=== PATIENT | male | born 1935 | race Caucasian/White ===

== ENCOUNTER 2018-05-04 03:48 | Inpatient (IN) ==
--- NOTE | 2018-05-04 04:13 | PROVIDER DOCUMENTATION ---
HPI-General Adult - General Chief Complaint: Altered Mental Status Stated Complaint: ams Time Seen by Provider: 05/04/18 03:55 Source: EMS Unable to obtain history due to:: altered Allergies/Adverse Reactions: Patient Allergies Allergy/AdvReac Type Severity Reaction Status Date / Time cephalexin Allergy Severe SHORTNESS Verified 04/19/18 13:48 OF BREATH Home Medications: Home Medication List Medication Instructions Recorded Confirmed Last Taken Type Aspirin [Aspir-Low] 81 mg PO QAM 03/31/17 05/04/18 03/21/18 History Fluticasone 50 Mcg Nasal [place] 2 sprays MAT BID 03/31/17 05/04/18 03/21/18 History [Flonase] PRAVAstatin [Pravachol] 40 mg PO QHS 03/31/17 05/04/18 03/21/18 History Pentoxifylline E.r. [Trental] 400 mg PO BID 03/31/17 05/04/18 03/21/18 History Phenytoin Sodium Extended 400 mg PO QHS 03/31/17 05/04/18 03/21/18 History Carvedilol [Coreg] 12.5 mg PO BID tablet 04/03/17 05/04/18 03/21/18 Rx Phenobarbital 97.2 mg PO QHS 60 Days #21 tab 04/19/17 05/04/18 03/21/18 Rx Gabapentin 300 mg PO TID 06/06/17 05/04/18 03/21/18 History [place]-3 Fatty Acids/Fish Oil [Fish 1 cap PO QAM 06/06/17 05/04/18 03/21/18 History Oil 1,000 mg Capsule] Omeprazole 20 mg PO QAM 06/06/17 05/04/18 03/21/18 History Acetaminophen [Mapap] 1,000 mg PO Q6H PRN PRN 08/18/17 05/04/18 03/21/18 History Furosemide [Lasix] 20 mg PO QAM 08/18/17 05/04/18 03/21/18 History Multivit,Th Iron,Other Min 1 each PO QAM 08/18/17 05/04/18 03/21/18 History [Therems-M] Calcium Carbonate/Vit D3 [Caltrate 1 tab PO DAILY 03/01/18 05/04/18 03/21/18 History 600 + D] Menthol/Zinc Oxide Ointment 1 gm TOP BID 03/01/18 05/04/18 03/21/18 History [Calmoseptine Ointment] Phenobarbital 2 tab PO TID 03/01/18 05/04/18 03/21/18 History Losartan [Cozaar] 50 mg PO DAILY #30 tab 03/05/18 05/04/18 03/21/18 Rx Prednisone 10 mg PO QAM #30 tab 03/05/18 05/04/18 03/21/18 Rx Ergocalciferol (Vitamin D2) 50,000 unit PO Q7D 05/04/18 05/04/18 Unknown History [Vitamin D] Multivits,Ca,Minerals/Iron/FA 1 tab PO QAM 05/04/18 05/04/18 Unknown History [Thera-M Tablet] Teriparatide [Forteo] 20 mcg SQ QAM 05/04/18 05/04/18 Unknown History - History of Present Illness -Gen Adult Nature of Presenting Problems: Pt presents with ams, pt has fever, cough, sob, coming from NH, non verbal here , low O2 sat when pt was picked up by EMS, pt is lying in bed in no acute respiratory distress Location of Pain/Injury: reports: none Pain Radiation: reports: no radiation Quality of Pain: reports: none Severity: reports: mild Onset/Duration: reports: 24 hours ago Timing: reports: still present Context/Activities at Onset: reports: none Modifying Factors: improves with: nothing Associated Symptoms: reports: denies symptoms Similar Symptoms Previously?: No Recently seen or treated by another doctor?: No Review of Systems - Adult - REVIEW OF SYSTEMS - ADULT Constitutional: reports: fever Eyes: reports: no symptoms reported Ears, Nose, Mouth & Throat: reports: no symptoms reported Cardiovascular: reports: no symptoms reported Respiratory: reports: see HPI Gastrointestinal: reports: no symptoms reported Genitourinary: reports: no symptoms reported Musculoskeletal: reports: no symptoms reported Integumentary: reports: no symptoms reported Neurological: reports: no symptoms reported Psychiatric: reports: no symptoms reported Endocrine: reports: no symptoms reported Hematologic/Lymphatic: reports: no symptoms reported Allergic/Immunologic: reports: no symptoms reported All Other Systems: Reviewed and Negative Past History - Adult - PAST MEDICAL HISTORY-ADULT Review of Records: reports: Old Records Reviewed, Nursing Assessment Review, Medications Reviewed, Social history reviewed & non-contributory. Major Childhood Illnesses: reports: denies history Cardiovascular: reports: HTN Respiratory: reports: lung disease (pulmonary fibrosis with hypoxemia) Gastrointestinal: reports: cancer (colon), GERD Obstetrical/Gynecological: reports: denies history Genitourinary: reports: kidney disease Musculoskeletal: reports: denies history Neurological: reports: CVA, stroke deficits (left sided weakness), Seizures/ Epilepsy Psychiatric: reports: denies history Endocrine/Immune: reports: Diabetes Other Conditions: reports: denies history - PRIOR SURGERIES/PROCEDURES Surgical/Procedure History: reports: appendectomy, tonsillectomy, bowel surgery (colon cancer), other (nephrectomy due to colon cancer) - IMMUNIZATION STATUS Childhood Immunizations: See Nurse Assessment Flu Vaccine: See Nurse Assessment - FAMILY HISTORY Family History: reviewed, not pertinent Physical Exam-General - PHYSICAL EXAM-ADULT Initial Vital Signs Reviewed: Yes - CONSTITUTIONAL General Appearance: lethargic - EYES Eyes: PERRL/EOMI - HEAD, EARS, NOSE, MOUTH & THROAT HENMT: normocephalic/atraumatic - NECK Neck: normal inspection - RESPIRATORY Respiratory: crackles - CARDIOVASCULAR Cardiovascular: regular rate, rhythm - GASTROINTESTINAL (ABDOMEN) Abdominal Exam: normal bowel sounds - LYMPHATIC Lymphatic: no adenopathy - MUSCULOSKELETAL Back Exam: normal inspection Extremity: normal inspection - SKIN Integumentary: normal color - NEUROLOGIC Neurologic: release of information clerk II-XII nml as tested - PSYCHIATRIC Psych/Mental Status: normal mood/affect Progress - PLAN OF CARE/RESULTS Progress/Plan/Lab Results: Vital Signs - 8 hr 05/04/18 04:04 Temperature 102.8 F H Pulse Rate 100 H Respiratory Rate 24 Blood Pressure 165/71 O2 Sat by Pulse Oximetry 92 L Orders Category Date Time Status [place] Cath Insertion ORDERED Care 05/04/18 03:57 Active cxr [CHEST-1 VIEW] [RAD] Stat Exams 05/04/18 03:56 Ordered BLOOD CULTURE [BLDCUL] Stat Lab 05/04/18 03:56 Uncollected CBC WITH ELECTRONIC DIFF [HEME] Stat Lab 05/04/18 03:56 Uncollected COMPREHENSIVE METABOLIC PANEL [CHEM] Stat Lab 05/04/18 03:56 Uncollected LACTATE, PLASMA [CHEM] Stat Lab 05/04/18 03:56 Uncollected LIPASE [CHEM] Stat Lab 05/04/18 03:56 Uncollected PRO B-NATRIURETIC PEPTIDE Stat Lab 05/04/18 03:56 Uncollected TROPONIN T Stat Lab 05/04/18 03:56 Uncollected URINALYSIS [URINALYSIS] Stat Lab 05/04/18 03:56 Uncollected URINE CULTURE [RM] Stat Lab 05/04/18 03:56 Uncollected Result Diagrams: 05/04/18 04:27 05/04/18 04:27 Departure - Departure Date of Disposition Decision: 05/04/18 Time of Disposition Decision: 05:40 DIAGNOSIS: Pneumonia Qualifiers: Pneumonia type: due to unspecified organism Laterality: bilateral Lung location : unspecified part of lung Qualified Code(s): J18.9 - Pneumonia, unspecified organism Disposition: ADMITTED INPATIENT 09 Certified Medical Emergency: Emergent Condition: Stable - Critical Care Note This patient required my direct & personal management of CC.: No Attestation - Physician/ HARINDER Attestation Patient care was provided by Advanced Practice Provider:: No The physician spent face to face time with patient:: Yes Advanced Practice Provider documentation review:: Supervising physician onsite and consulted in the evaluation and care of this patient. The physician did have a face to face encounter with the patient.
[2018-05-04 04:50] LABS: BASO# 0.01 X1000 (0.0-0.2); BASO% 0.1 % (0.0-0.8); EOS# 0.09 X1000 (0.0-0.7); EOS% 0.7 % (0.0-10.0); HEMATOCRIT 40.9 % (42.0-52.0); HEMOGLOBIN 13.4 g/dL (14.0-18.0); LYMPH# 0.57 X1000 (1.2-3.4); LYMPH% 4.7 % (20.5-51.1); MCH 31.5 PG (27-31); MCHC 32.8 g/dL (33-37); MCV 96.2 FL (81-99); MONO# 0.74 X1000 (0.11-0.59); MONO% 6.1 % (1.7-9.3); MPV 9.4 FL (7.4-10.4); NEUT# 10.73 X1000 (1.4-6.5); NEUT% 88.4 % (42.2-75.2); PLT 126 X1000 (130-400); RBC 4.25 XMIL (4.7-6.1); RDW 13.2 % (11.5-14.5); WBC 12.14 X1000 (4.8-10.8)
[2018-05-04 04:55] LABS: URINE SOURCE CATH
[2018-05-04 04:58] LABS: BILIRUBIN URINE NEGATIVE (NEGATIVE); BLOOD URINE NEGATIVE (NEGATIVE); COLOR YELLOW; GLUCOSE URINE NEGATIVE (NEGATIVE); KETONE URINE NEGATIVE (NEGATIVE); LEUKOCYTES URINE NEGATIVE (NEGATIVE); NITRITE URINE NEGATIVE (NEGATIVE); PROTEIN URINE 70 mg/dL (NEGATIVE); SP GRAVITY URINE 1.016; TURBIDITY URINE CLEAR (CLEAR); UROBILINOGEN URINE NORMAL (NORMAL)
[2018-05-04 04:59] LABS: UR EPITHELIAL CELLS <10 /HPF (<10); URINE BACTERIA NEGATIVE /HPF; URINE RBC <10 /HPF (<10); URINE WBC <10 /HPF (<10)
[2018-05-04 05:05] LABS: AGAP 12; ALB/GLOB RATIO 1.2; ALBUMIN 3.6 g/dL (3.5-5.0); ALKALINE PHOSPHATASE 146 U/L (32-122); BUN 19 mg/dL (8-22); CALCIUM 8.1 mg/dL (8.8-10.2); CHLORIDE 98 mmol/L (98-107); COSMO 290; ESTIMATED GFR > 60; GLUCOSE 175 mg/dL (70-104); GOT 25 U/L (10-34); GPT 27 U/L (10-44); LIPASE 63 U/L (13-60); POTASSIUM 4.3 mmol/L (3.5-5.1); SODIUM 142 mmol/L (136-145); TCO2 32 mmol/L (25-35); TOTAL BILIRUBIN 0.49 mg/dL (0.20-1.00); TOTAL PROTEIN 6.7 g/dL (6.3-8.3)
[2018-05-04] MEDS ORDERED: TYLENOL PR ONE (05:13)
[2018-05-04] MEDS ORDERED: VANCOMYCIN 1 GM/NS 1 GM/250 ML IVPB IV ONE ×2 (05:23→08:00)
[2018-05-04] MEDS ORDERED: ZOSYN 3.375 GM in NS 50 ML IV ONE (05:23)
[2018-05-04] MEDS ORDERED: ZOFRAN IV PRN (06:10)
[2018-05-04] MEDS: DUONEB (A & A) INH SCH ×4 (06:15→20:13)
[2018-05-04] MEDS ORDERED: NS 1,000 ML IV ONE (06:19)
[2018-05-04] MEDS ORDERED: TYLENOL PR PRN (06:21)
[2018-05-04] MEDS ORDERED: VANCOMYCIN IV PER PHARMACY MISC SCH (06:30)
[2018-05-04] MEDS ORDERED: LEVOPHED 8 MG in D5 1/2 NS 250 ML IV SCH (06:30)
[2018-05-04] MEDS ORDERED: NS 500 ML IV ONE (06:31)
[2018-05-04 06:41] LABS: ALLEN TEST YES; BE 9.7 mmoll (-3.0-3.0); BLOOD TYPE ARTERIAL; HCO3-(ACT) 32.4 mmoll (20.0-26.0); METHB 1.2 % (0.0-1.5); O2(CT) 16.7 mL/dL (15.0-23.0); O2HB 94.1 % (95.0-99.0); PO2(98.6) 74 mmHg (60-100); SAMPLE BLOOD; SAO2 97.4 % (95.0-100.0); THB 12.6 g/dL (11.5-17.4); pH(98.6) 7.43 (7.35-7.45)
[2018-05-04 06:42] LABS: MODALITY CANNULA
[2018-05-04] MEDS: LOVENOX SUBQ SCH (06:42)
[2018-05-04 06:43] LABS: PCO2(98.6) 54 mmHg (35-45)
--- NOTE | 2018-05-04 06:43 | HISTORY AND PHYSICAL ---
ADDENDUM: The patient was seen and examined by myself. Full note dictated and discussed with the nurse practitioner. Patient presented to the hospital from the [facility] confused and disoriented. He had some fever and increased cough. There is no other history available as the patient is confused and his sister is unaware Does have a history of pulmonary fibrosis, diabetes. No change in his chest x-ray consistent with pneumonia. While in the ER, his blood pressure has dropped into the upper 80s, low 90s systolic. We will admit him to the hospital, place him on antibiotics, IV fluids, control his blood sugar. We will use Levophed if his blood pressure continues to drop. Further orders as needed. Please see full dictation. cc: Scooby Banks MD MTDD
[2018-05-04] MEDS: HUMALOG SUBQ SCH ×4 (07:00→20:51)
[2018-05-04] MEDS: NS 1,000 ML IV SCH ×3 (07:13→19:59)
--- NOTE | 2018-05-04 07:20 | HISTORY AND PHYSICAL ---
PRIMARY CARE PROVIDER: Dr. Osmar Vasquez. CHIEF COMPLAINT: Altered mental status. HISTORY OF PRESENT ILLNESS: This is an 82-year-old male who [facility] the [facility]. He is obtunded. He does reflex to deep stimulus. He was nonverbal in the emergency room. 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 He did regain mostly normal activity. I believe he had a slight limp and his left side was weak, greater in the arm, I believe from the elbow down he only had trace movements. He also had diabetes mellitus type 2, previous renal cell carcinoma, pulmonary fibrosis, I believe he uses 2-3 L of home O2, osteoporosis and post stroke epilepsy. Again, he came in fairly obtunded. The sister tells me that at the [facility] from what she understands, he had had some cough and was not feeling very well for around 3 days. He was somewhat more lethargic than normal. Reportedly today, he started having low O2 sats. Stated that he was having chills, became altered. From what I understand, they were unable to take the patient's temperature for some reason at the [facility]; however, on arrival, he was febrile with a temp max of 102.8 degrees in the emergency room. Flu swab is pending. Chest x-ray obtained in the emergency room shows questionable left lower lobe infiltrate. Does have a mildly elevated white blood cell count at 12.14. Also, he is hypotensive in the emergency room. His blood pressure has dropped down into the 80s systolic. The patient will be admitted inpatient to the ICU for further evaluation and treatment. PAST MEDICAL HISTORY: See HPI. PREVIOUS SURGICAL HISTORY: 1. Hip repair. 2. Appendectomy. 3. Tonsillectomy. 4. Bowel resection secondary to colon cancer. 5. Nephrectomy. SOCIAL HISTORY: [facility] the [facility]. Remote history of tobacco use per the sister. He was in 2011. He has no children. No alcohol. No illicit drugs. FAMILY HISTORY: Father had diabetes and coronary artery disease. Mother had arthritis. ALLERGIES: Cephalexin causing shortness of breath. HOME MEDICATIONS: A list of home medications is being compiled by nursing. These can be restarted when appropriate. REVIEW OF SYSTEMS: A review of systems could not be obtained from the patient as he obtunded and nonverbal. Pertinent positives on admission are listed above in the HPI. PHYSICAL EXAMINATION: VITAL SIGNS: Temp 102.8 degrees, pulse 89, respirations 23, blood pressure 89/50. Oxygen saturation 93% on 2 L nasal cannula. GENERAL: 82-year-old male lying in the ER stretcher. Chronically ill-appearing. He is obtunded. Reflexes from deep stimulus. He is nonverbal at this time. HEENT: Head is atraumatic, normocephalic. Pupils equal, round, reactive to light. Extraocular eye movement could not be tested. Oral mucosa is moist. Oropharynx otherwise normal on examination. NECK: Supple. No JVD. Trachea is midline. No carotid bruit. CARDIAC: S1, S2 appreciated. No murmurs, gallops, rubs. LUNGS: Fine crackles noted throughout bilateral air trevino. No wheezing, rhonchi. Symmetrical rise and fall of respirations. ABDOMEN: Protuberant, soft, nondistended, nontender. Bowel sounds present in all 4 quadrants. Normoactive. No pulsatile mass. No organomegaly. MUSCULOSKELETAL: The patient is for the most part flaccid. Does reflect to deep stimulus. Has only moved right arm that I saw. EXTREMITIES: No cyanosis, clubbing or edema. 1+ pedal pulses bilaterally. SKIN: Warm, dry and intact. No acute lesions or rash. DIAGNOSTIC DATA: Chest x-ray shows chronic fibrotic changes, questionable left lower lobe infiltrate. LABORATORY DATA: WBC 12.14, hemoglobin 13.4, hematocrit 40.9, platelet count 126,000. Sodium 142, potassium 4.3, chloride 98, carbon dioxide 32, BUN 19, creatinine 1, glucose 175. Urine unremarkable. ASSESSMENT AND PLAN: 1. Encephalopathy. This is likely infectious in nature. The patient has a presumed left lower lobe pneumonia. He is a [facility] patient. We will start on vancomycin and Zosyn. He received 1 dose of Zosyn already in the emergency room. We will order blood cultures. Cannot exclude flu at this point. Flu swab has been ordered and is pending. 2. Presumed left lower lobe pneumonia. The patient will be treated with IV antibiotics, DuoNeb, IV normal saline. 3. Hypotension. The patient has a history of essential hypertension. Home medications are being reconciled. He will be started on Levophed and placed in the unit at this time. He is currently receiving a fluid bolus in the emergency room. 4. Seizure disorder. I believe the patient takes Dilantin and phenobarbital. We will defer to primary care provider, Dr. Osmar Vasquez to restart these once dosages are placed in the computer. 5. History of CVA, aware. CT of the head is pending to rule out acute CVA; however, this appears to be more infectious in nature. 6. Diabetes mellitus type 2. Patient's blood sugars are mildly elevated at 175. He is obtunded and will not be able to take oral antihyperglycemics at this time. We will start on low dose sliding scale insulin with pattern fingerstick blood sugar. Further recommendations per patient's clinical course. Dictated by SHANIQUA Guan for Scooby Banks MD cc: SHANIQUA Guan MD Russell T. Barr, MD
--- NOTE | 2018-05-04 07:52 | Diag Imaging Result Doc PS360 ---
EXAM: CT HEAD W/O CONTRAST INDICATION: ams TECHNIQUE: This exam was performed using automated exposure control, adjustment of mA or kV according to patient size, and/or use of iterative reconstruction technique. COMPARISON: 02/15/2018 FINDINGS: There is stable right frontal lobe encephalomalacia. There is suggestion of moderate white matter microangiopathy, stable. There is a stable chronic lacunar infarct involving the caudate head on the left. There is no definite acute infarct given the limited sensitivity of CT versus MRI. There is no discrete intracranial mass, mass effect, or intracranial hemorrhage. There is stable chronic right maxillary sinus mucosal disease with complete opacification. There is minimal stable right ethmoid sinus mucosal disease. Surrounding soft tissues and bony structures are essentially unremarkable, otherwise. IMPRESSION: Stable chronic changes as described. No evidence of acute intracranial pathology. Electronically signed by Abdi Lawrence 05/04/2018 7:50 AM
--- NOTE | 2018-05-04 08:37 | Diag Imaging Result Doc PS360 ---
EXAM: CHEST-1 VIEW INDICATION: sob, cough TECHNIQUE: One view COMPARISON: 04/19/2018 FINDINGS: Lung volumes are low similar to the previous study. There are bilateral interstitial and airspace infiltrates throughout both lungs. The density has increased during the interval. This suggests edema and/or pneumonia superimposed on fibrosis. No definite pleural fluid collection or pneumothorax is identified. Cardiac silhouette is stable. IMPRESSION: Increasing opacity throughout both lungs suggesting infiltrate superimposed on fibrosis. Electronically signed by Abdi Lawrence 05/04/2018 8:35 AM
[2018-05-04] MEDS: ZOSYN 3.375 GM in NS 50 ML IV SCH ×3 (11:29→23:54)
[2018-05-04] MEDS ORDERED: MISC. PHARMACY COMMUNICATION SCH (13:30)
[2018-05-04] MEDS ORDERED: FLU VACCINE IM ONE (14:01)
--- NOTE | 2018-05-04 15:11 | PROGRESS NOTE ---
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 Per report, he was lethargic and obtunded. Temperature in the emergency department was noted to be 102.8. White blood cell count was noted to be elevated at 12.4. Chest x-ray suggested increasing opacity throughout both lungs suggesting infiltrate superimposed on fibrosis. The patient was admitted to the ICU. He was placed on Zosyn, vancomycin, and nebulizer treatment. Oxygen per protocol was initiated. Upon my arrival in the emergency department, patient was comfortable. He was lethargic, but answered questions appropriately. His vital signs have been stable since in the emergency department. He is currently afebrile. OBJECTIVE: Temperature 97.9 degrees, heart rate 68, respirations 17, blood pressure 92/42.General: Chronically ill appearing, no acute distress. Cardiovascular: Regular rate and rhythm. No significant murmurs, rubs, or gallops. Pulmonary: Crackles at bilateral bases with occasional rhonchi. Abdomen: Soft, nontender, nondistended. Positive bowel sounds. Extremities: Moves all extremities well. No significant clubbing, cyanosis, or edema. Dermatologic: Evaluation reveals no evidence of rash. ASSESSMENT AND PLAN: 1. half-way-associated pneumonia-blood cultures have been drawn. Differential includes community-acquired pathogens, senior care pathogens, and aspiration. The patient will be continued on Zosyn and vancomycin therapy. Clinically, patient has demonstrated stability. 2. Hypoxemia-we will continue patient on oxygen per protocol. We will encourage aspiration precautions. 3. Alteration of mental status/metabolic encephalopathy-this likely is a consequence of his acute infection. I am unaware of patient's underlying baseline. We will attempt to achieve better understanding from family members. 4. Profound weakness-we will treat patient for his underlying pneumonia. We will initiate physical therapy once able. 5. Type 2 diabetes-blood sugar was elevated upon admission at 175. We will follow serial blood sugar evaluations. 6. Hypotension-patient was noted to have a modest hypotension while in the emergency department. Blood pressure this afternoon remains marginal. We will continue IV fluids. At this point, I do not see an indication for pressor support. This likely is a consequence of his acute infection. 7. History of cerebrovascular accident-we will remain aware. 8. Disposition-at this point, patient continues to require halfway care in a hospital setting. We will plan discharge home or to rehabilitation once appropriate. cc: MD Osmar Wall MD
[2018-05-04] MEDS ORDERED: BLISTEX MEDICATED BERRY LIP BALM TOP ONE (18:04)
[2018-05-05] MEDS: DUONEB (A & A) INH SCH ×5 (03:26→23:42)
[2018-05-05 05:02] LABS: BASO# 0.01 X1000 (0.0-0.2); BASO% 0.2 % (0.0-0.8); EOS# 0.17 X1000 (0.0-0.7); EOS% 2.8 % (0.0-10.0); HEMATOCRIT 34.8 % (42.0-52.0); HEMOGLOBIN 11.1 g/dL (14.0-18.0); LYMPH# 0.67 X1000 (1.2-3.4); MCHC 31.9 g/dL (33-37); MCV 97.2 FL (81-99); MONO# 0.43 X1000 (0.11-0.59); NEUT# 4.82 X1000 (1.4-6.5); PLT 121 X1000 (130-400); RBC 3.58 XMIL (4.7-6.1); RDW 13.1 % (11.5-14.5)
[2018-05-05 05:22] LABS: AGAP 9; BUN 16 mg/dL (8-22); CALCIUM 7.9 mg/dL (8.8-10.2); CHLORIDE 105 mmol/L (98-107); COSMO 287; CREATININE 0.9 mg/dL (0.7-1.2); ESTIMATED GFR > 60; GLUCOSE 111 mg/dL (70-104); POTASSIUM 4.1 mmol/L (3.5-5.1); SODIUM 143 mmol/L (136-145); TCO2 29 mmol/L (25-35)
[2018-05-05] MEDS: LOVENOX SUBQ SCH (05:46)
[2018-05-05] MEDS: ZOSYN 3.375 GM in NS 50 ML IV SCH ×3 (05:46→18:07)
[2018-05-05] MEDS: HUMALOG SUBQ SCH ×4 (06:18→20:38)
[2018-05-05] MEDS: NS 1,000 ML IV SCH (09:55)
[2018-05-05] MEDS ORDERED: NS 50 ML ONE (10:21)
[2018-05-05] MEDS ORDERED: TYLENOL PO PRN (12:43)
[2018-05-05] MEDS ORDERED: NS 1,000 ML IV SCH (12:52)
--- NOTE | 2018-05-05 13:23 | PROGRESS NOTE ---
DATE: 05/05/2018 SUBJECTIVE: Patient was admitted yesterday morning with alteration of mental status. Full evaluation revealed an underlying pneumonia. The patient was placed in the ICU. He was started on Zosyn, vancomycin, and aggressive hydration. Upon my evaluation yesterday morning, patient was interactive, but minimally. Over the course of the day yesterday, patient's overall condition improved considerably. The patient's blood pressure improved with IV hydration and treatment of his underlying infection. Blood cultures thus far are negative. This morning, patient is much more interactive. His mental status is at his baseline. He is alert and oriented to person, place, and situation. He is asking for food as he is very hungry. His only complaint this morning is that of a cough, as well as some mild shortness of breath. He has had some cough productive of a purulent sputum. He denies current fevers, chills, nausea/vomiting, or chest discomfort. OBJECTIVE: Vital signs: T-max 98.2 degrees, heart rate 62-75, respirations 17-23, blood pressure 77 to 160 over 41 to 80. General: No acute distress. Cardiovascular: Regular rate and rhythm. No significant murmurs, rubs, or gallops. Pulmonary: Clear to auscultation anteriorly. Adequate air movement. Abdomen: Soft, nontender, nondistended. Positive bowel sounds. Extremities: No significant clubbing, cyanosis, or edema. Dermatologic: Evaluation reveals no evidence of rash. LABORATORY DATA: White blood cell count 6.10, hemoglobin 11.1, hematocrit 34.8, platelet count is 121,000. Sodium 143, potassium 4.1, chloride 105, bicarbonate 29, BUN 16, creatinine 0.9, glucose 111, calcium 7.9. TSH 1.52. ASSESSMENT AND PLAN: 1. care home associated pneumonia - As described above, patient has experienced a significant improvement in his overall condition over the course of the first 24 hours. The patient's blood pressure has increased from a hypotensive state to a slight elevation. The patient's temperature has normalized. His white blood cell count has also normalized. Blood cultures thus far are negative. We will encourage staff to obtain a sputum culture. We will continue Zosyn and vancomycin for now. In the setting of mild shortness of breath this morning, we will increase his DuoNeb to every 4 hours, discontinue IV fluids, and resume Lasix therapy. We will check a chest x-ray. 2. Hypoxemia - We will continue patient on oxygen per protocol. We will encourage aspiration precautions as well as incentive spirometry. 3. Alteration of mental status/metabolic encephalopathy - I am very encouraged with the patient's improvement over the course of the first 24 hours. This likely was a consequence of his underlying pneumonia. We will continue treatment as above. 4. Profound weakness - Once again, this is likely a consequence of his underlying pneumonia. We will continue aggressive management as noted above. We will consider whether physical therapy is appropriate to initiate tomorrow. 5. Type 2 diabetes - The patient is being treated with sliding scale insulin. We will continue this. 6. Hypotension - Upon admission, patient was noted to be hypotensive, likely secondary to his underlying infection. With his aggressive management as described above, his blood pressures have increased considerably. We will resume Coreg therapy today. We will schedule losartan to be initiated tomorrow, as I suspect his blood pressure will tolerate this at that time. 7. History of cerebral vascular accident with underlying seizure disorder - I have reviewed patient's home medication list. We will resume phenobarbital and Dilantin at his home dosage. DISPOSITION: At this point, patient continues to require group home care in a hospital setting. We will monitor patient's pulmonary status over the course of the next several hours. If he remains stable, we will consider transfer to the floor later this evening. cc: MD Osmar Wall MD
[2018-05-05] MEDS: MUCINEX PO SCH ×2 (13:33→20:31)
[2018-05-05] MEDS: PREDNISONE PO SCH (13:33)
[2018-05-05] MEDS: COREG PO SCH ×2 (13:38→20:32)
[2018-05-05] MEDS: NEURONTIN PO SCH ×2 (13:48→18:00)
[2018-05-05] MEDS: LASIX PO SCH (13:48)
[2018-05-05] MEDS ORDERED: VANCOMYCIN 1,800 MG in NS 250 ML IV SCH (14:00)
--- NOTE | 2018-05-05 14:40 | Diag Imaging Result Doc PS360 ---
EXAM: CHEST-PORTABLE INDICATION: Pneumonia TECHNIQUE: One view COMPARISON: 05/04/2018 FINDINGS: Inspiration is suboptimal. This is similar to the previous study. Interstitial opacity appears to have improved slightly during the interval. This suggests improving edema superimposed on fibrosis. No other new consolidation is identified. Cardiac silhouette is stable. IMPRESSION: Slight improvement of infiltrates bilaterally. Electronically signed by Abdi Lawrence 05/05/2018 2:38 PM
[2018-05-05] MEDS: PHENOBARBITAL PO SCH ×2 (15:09→20:51)
[2018-05-05] MEDS: PRAVACHOL PO SCH (20:31)
[2018-05-05] MEDS: DILANTIN PO SCH (20:31)
[2018-05-05] MEDS: TRENTAL PO SCH (20:32)
[2018-05-05] MEDS: FLONASE NAS SCH (20:51)
[2018-05-05] MEDS ORDERED: COREG PO SCH (21:00)
[2018-05-06] MEDS: ZOSYN 3.375 GM in NS 50 ML IV SCH ×2 (00:07→05:08)
[2018-05-06] MEDS: DUONEB (A & A) INH SCH ×2 (03:51→08:08)
[2018-05-06 04:37] LABS: BASO# 0.01 X1000 (0.0-0.2); BASO% 0.2 % (0.0-0.8); EOS# 0.19 X1000 (0.0-0.7); HEMATOCRIT 37.3 % (42.0-52.0); HEMOGLOBIN 12.4 g/dL (14.0-18.0); IMM GRAN# 0.02 X1000 (0.0-0.04); IMM GRAN% 0.4 % (0.0-0.5); LYMPH# 0.86 X1000 (1.2-3.4); MCH 32.1 PG (27-31); MCHC 33.2 g/dL (33-37); MCV 96.6 FL (81-99); MONO# 0.46 X1000 (0.11-0.59); MONO% 9.6 % (1.7-9.3); MPV 10.3 FL (7.4-10.4); NEUT# 3.24 X1000 (1.4-6.5); NEUT% 67.8 % (42.2-75.2); PLT 122 X1000 (130-400); RBC 3.86 XMIL (4.7-6.1); RDW 12.9 % (11.5-14.5); WBC 4.78 X1000 (4.8-10.8)
[2018-05-06 05:01] LABS: AGAP 12; ALB/GLOB RATIO 0.7; ALBUMIN 2.7 g/dL (3.5-5.0); ALKALINE PHOSPHATASE 103 U/L (32-122); BUN 12 mg/dL (8-22); CALCIUM 8.1 mg/dL (8.8-10.2); CHLORIDE 102 mmol/L (98-107); COSMO 273; ESTIMATED GFR > 60; GLUCOSE 97 mg/dL (70-104); GOT 28 U/L (10-34); GPT 24 U/L (10-44); POTASSIUM 4.2 mmol/L (3.5-5.1); SODIUM 137 mmol/L (136-145); TCO2 23 mmol/L (25-35); TOTAL BILIRUBIN 0.37 mg/dL (0.20-1.00); TOTAL PROTEIN 6.7 g/dL (6.3-8.3)
[2018-05-06] MEDS: LOVENOX SUBQ SCH (05:19)
[2018-05-06] MEDS: HUMALOG SUBQ SCH (06:04)
[2018-05-06] MEDS: NEURONTIN PO SCH ×3 (08:11→16:49)
[2018-05-06] MEDS: ASPIRIN EC PO SCH (08:11)
[2018-05-06] MEDS: TRENTAL PO SCH ×2 (08:11→20:02)
[2018-05-06] MEDS: COZAAR PO SCH (08:11)
[2018-05-06] MEDS: PREDNISONE PO SCH (08:11)
[2018-05-06] MEDS: LASIX PO SCH (08:12)
[2018-05-06] MEDS: PRILOSEC PO SCH (08:12)
[2018-05-06] MEDS: MUCINEX PO SCH ×2 (08:12→20:02)
[2018-05-06] MEDS: PHENOBARBITAL PO SCH ×3 (08:12→19:22)
[2018-05-06] MEDS: THERA M PLUS PO SCH (08:12)
[2018-05-06] MEDS: FLONASE NAS SCH ×2 (08:13→20:03)
[2018-05-06] MEDS: COREG PO SCH ×2 (08:13→20:12)
[2018-05-06] MEDS ORDERED: SENOKOT PO ONE (08:51)
[2018-05-06] MEDS ORDERED: CALTRATE 600 + D PO SCH (09:00)
[2018-05-06] MEDS: DOXYCYCLINE PO SCH ×2 (09:37→20:02)
--- NOTE | 2018-05-06 10:12 | EKG Report ---
Test Performed on : 05/04/2018 03:58:18 AM Test Reason : ED. NO EKG ORDER FOR MUSE Blood Pressure : / mmHG Vent. Rate : 100 BPM Atrial Rate : 100 BPM P-R Int : 176 ms QRS Dur : 088 ms QT Int : 334 ms P-R-T Axes : 030 -14 066 degrees QTc Int : 430 ms Normal sinus rhythm. Inferior infarct (cited on or before 29-MAR-2017) Abnormal ECG When compared with ECG of 19-APR-2018 13:45, (Unconfirmed) No significant change was found Unconfirmed Result
[2018-05-06] MEDS: ALBUTEROL NEB INH PRN ×4 (11:18→22:51)
[2018-05-06] MEDS: PRAVACHOL PO SCH (20:02)
[2018-05-06] MEDS: DILANTIN PO SCH (20:03)
[2018-05-07] MEDS: ALBUTEROL NEB INH PRN ×4 (02:49→19:42)
[2018-05-07] MEDS: CALMOSEPTINE OINTMENT TOP SCH ×2 (05:22→08:22)
[2018-05-07] MEDS: LOVENOX SUBQ SCH (05:22)
[2018-05-07] MEDS ORDERED: DULCOLAX PR ONE (08:08)
[2018-05-07] MEDS: LASIX PO SCH (08:21)
[2018-05-07] MEDS: THERA M PLUS PO SCH (08:21)
[2018-05-07] MEDS: ASPIRIN EC PO SCH (08:21)
[2018-05-07] MEDS: PREDNISONE PO SCH (08:21)
[2018-05-07] MEDS: MUCINEX PO SCH ×2 (08:21→21:35)
[2018-05-07] MEDS: PHENOBARBITAL PO SCH ×3 (08:21→21:35)
[2018-05-07] MEDS: DOXYCYCLINE PO SCH ×2 (08:21→21:35)
[2018-05-07] MEDS: TRENTAL PO SCH ×2 (08:21→21:36)
[2018-05-07] MEDS: NEURONTIN PO SCH ×3 (08:21→17:19)
[2018-05-07] MEDS: COZAAR PO SCH (08:22)
[2018-05-07] MEDS: PRILOSEC PO SCH (08:22)
[2018-05-07] MEDS: COREG PO SCH ×2 (08:22→21:36)
[2018-05-07] MEDS: FLONASE NAS SCH ×2 (08:23→21:34)
[2018-05-07] MEDS: DILANTIN PO SCH (21:34)
[2018-05-07] MEDS: PRAVACHOL PO SCH (21:36)
[2018-05-08] MEDS: LOVENOX SUBQ SCH (06:35)
[2018-05-08] MEDS: CALMOSEPTINE OINTMENT TOP SCH ×3 (07:54→21:47)
[2018-05-08] MEDS: FLONASE NAS SCH ×2 (09:00→21:46)
[2018-05-08] MEDS: NEURONTIN PO SCH ×3 (09:02→16:46)
[2018-05-08] MEDS: LASIX PO SCH (09:02)
[2018-05-08] MEDS: COREG PO SCH ×2 (09:02→21:47)
[2018-05-08] MEDS: ASPIRIN EC PO SCH (09:02)
[2018-05-08] MEDS: THERA M PLUS PO SCH (09:02)
[2018-05-08] MEDS: COZAAR PO SCH (09:02)
[2018-05-08] MEDS: MUCINEX PO SCH ×2 (09:02→21:46)
[2018-05-08] MEDS: PREDNISONE PO SCH (09:02)
[2018-05-08] MEDS: TRENTAL PO SCH ×2 (09:02→21:45)
[2018-05-08] MEDS: DOXYCYCLINE PO SCH ×2 (09:02→21:45)
[2018-05-08] MEDS: PRILOSEC PO SCH (09:02)
[2018-05-08] MEDS: PHENOBARBITAL PO SCH ×3 (09:07→21:45)
[2018-05-08] MEDS ORDERED: BLISTEX MEDICATED BERRY LIP BALM TOP PRN (09:09)
[2018-05-08] MEDS: ALBUTEROL NEB INH PRN ×4 (11:43→23:05)
[2018-05-08] MEDS: DILANTIN PO SCH (21:45)
[2018-05-08] MEDS: PRAVACHOL PO SCH (21:46)
[2018-05-09] MEDS: LOVENOX SUBQ SCH (06:30)
[2018-05-09] MEDS: ALBUTEROL NEB INH PRN ×3 (07:46→16:12)
[2018-05-09] MEDS: THERA M PLUS PO SCH (09:05)
[2018-05-09] MEDS: ASPIRIN EC PO SCH (09:06)
[2018-05-09] MEDS: FLONASE NAS SCH (09:06)
[2018-05-09] MEDS: COREG PO SCH (09:06)
[2018-05-09] MEDS: COZAAR PO SCH (09:06)
[2018-05-09] MEDS: PRILOSEC PO SCH (09:06)
[2018-05-09] MEDS: PREDNISONE PO SCH (09:06)
[2018-05-09] MEDS: NEURONTIN PO SCH ×2 (09:06→13:10)
[2018-05-09] MEDS: LASIX PO SCH (09:06)
[2018-05-09] MEDS: MUCINEX PO SCH (09:06)
[2018-05-09] MEDS: DOXYCYCLINE PO SCH (09:11)
[2018-05-09] MEDS ORDERED: DOXYCYCLINE ONE (09:14)
[2018-05-09] MEDS: PHENOBARBITAL PO SCH ×2 (10:08→15:31)
[2018-05-09] MEDS ORDERED: PHENOBARBITAL ONE (10:13)
[2018-05-09] MEDS: TRENTAL PO SCH (12:09)
[2018-05-09 13:25] VITALS: BP 134/62
--- NOTE | 2018-05-10 06:36 | DISCHARGE SUMMARY ---
ADMISSION DATE: 05/04/2018 DISCHARGE DATE: 05/09/2018 FINAL DIAGNOSES: 1. Bibasilar bacterial pneumonia. 2. Acute exacerbation of chronic COPD and chronic pulmonary fibrosis due to number one. 3. Metabolic encephalopathy secondary to number one and number two. 4. 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 5. Osteoporosis with history of hip fracture and limited mobility. 6. Type 2 diabetes mellitus, diet controlled. 7. Chronic respiratory failure. PRESENT ILLNESS: Mr. Krishna is an 82-year-old gentleman who has overcome multiple previous medical problems but remains very a tenuous outpatient stay. He lives at [facility] and was brought to the Emergency Room at [facility] [place] for evaluation after he had decreased responsiveness for 36 hours. He has a long history of COPD with pulmonary fibrosis and is on long- term prednisone at home. His chest x-ray showed increased bibasilar infiltrates. Lung exam confirmed crackles and wheezes in both bases as well. He was noted to be mildly hypotensive and had an elevated white blood count. He was briefly admitted to [facility] and then transferred to [facility] for further evaluation and management. DATABASE: Initial white blood count 12,140. Hemoglobin 13.4. Hematocrit 40.9%. Electrolytes were normal. BUN and creatine were normal. Glucose 175. Lactate was 1.9. Blood gas had a pH of 7.43, PCO2 54, PO2 74 on 5 L nasal cannula. His elevated PCO2 was chronic and similar to previous measurements. This is indicative of chronic respiratory failure which should be listed as a discharge diagnosis above. HOSPITAL COURSE: He was initially treated with intravenous vancomycin and Zosyn pending blood and sputum cultures. He was never able to obtain a sputum specimen for culture but his blood cultures were negative. Also urine cultures were negative. He was admitted to ICU but transferred out on Sunday. He was seen by Physical Therapy and managed to stand and take a few steps and transfer to a chair with assistance. His lung exam improved markedly. His fingerstick blood sugars were adequately controlled. He seemed to benefit from some half strength albuterol treatments and these will be continued on a p.r.n. basis at discharge. His mental status improved markedly over the first 48 hours and returned to his baseline. He was transitioned to oral doxycycline for antibiotics and tolerated this well. On the day of discharge he complained of a fever blister on his lower lip and was started on acyclovir. He is to return to my office in 8 to 14 days for transition of care visit. DISCHARGE MEDICATIONS: 1. Doxycycline 100 mg daily for 5 additional days. 2. Acyclovir 400 mg three times a day for 5 days. 3. Albuterol 1.25 mg in 3 mL of normal saline q.4.h p.r.n. for shortness of breath. 4. Fluticasone nasal spray, two sprays daily. 5. Trental 400 mg twice a day. 6. Dilantin capsules 100 mg, four capsules nightly for seizures. 7. Aspirin 81 mg daily. 8. Pravastatin 40 mg nightly. 9. Coreg 12.5 mg twice a day. 10.Phenobarbital 97.2 mg nightly. 11.Phenobarbital 16.2 mg two tablets three times a day during the day. 12.Gabapentin 300 mg t.i.d. for neuropathy pain. 13.Fish oil 1000 mg capsule q. a.m. 14.Omeprazole 20 mg q a.m. 15.Lasix 20 mg q. a.m. 16.Multivitamin with iron, one daily. 17.Ceftin ointment topically b.i.d. as needed for groin rash. 18.Caltrate Plus D one daily. 19.Prednisone 10 mg q a.m. 20.Losartan 50 mg daily. 21.Vitamin D2 50,000 units p.o. once weekly. 22.Forteo 20 mcg subcutaneously q a.m. cc: Osmar Vasquez MD
== END 2018-05-09 16:32 | disposition home health service (06) | DRG 193 ==
LOC: ED 03:48 → ICU 07:58 → SUATTDRO 07:58 → 4N 05-07 15:20
PROVIDERS: ADMIT Internal Medicine; ATTEND Internal Medicine
CPT/HCPCS: 51702; 70450; 71010; 71045; 80048; 80053; 81001; 82805; 82948; 83605; 83690; 83880; 84443; 84484; 85025; 87040; 87088; 87275; 87276; 87804; 93005; 94640; 94761; 96365; 96366; 96367; 96368; 96375; 97162; 97530; 99285; A9270; J1650; J1815; J2543; J3370; J7030; J7050; J7506; J7512; XXXXX

== ENCOUNTER 2018-06-30 12:58 | Inpatient (IN) ==
[2018-06-30 13:55] LABS: BASO# 0.01 X1000 (0.0-0.2); BASO% 0.1 % (0.0-0.8); EOS# 0.11 X1000 (0.0-0.7); EOS% 1.4 % (0.0-10.0); HEMATOCRIT 39.9 % (42.0-52.0); HEMOGLOBIN 12.9 g/dL (14.0-18.0); LYMPH# 1.04 X1000 (1.2-3.4); LYMPH% 13.6 % (20.5-51.1); MCH 31.8 PG (27-31); MCHC 32.3 g/dL (33-37); MCV 98.3 FL (81-99); MONO# 0.51 X1000 (0.11-0.59); MONO% 6.7 % (1.7-9.3); MPV 9.8 FL (7.4-10.4); NEUT# 5.97 X1000 (1.4-6.5); NEUT% 78.2 % (42.2-75.2); PLT 138 X1000 (130-400); RBC 4.06 XMIL (4.7-6.1); RDW 13.7 % (11.5-14.5); WBC 7.64 X1000 (4.8-10.8)
[2018-06-30 14:06] LABS: URINE SOURCE CATH
[2018-06-30 14:09] LABS: BILIRUBIN URINE NEGATIVE (NEGATIVE); BLOOD URINE NEGATIVE (NEGATIVE); COLOR YELLOW; GLUCOSE URINE NEGATIVE (NEGATIVE); KETONE URINE NEGATIVE (NEGATIVE); LEUKOCYTES URINE SMALL (NEGATIVE); NITRITE URINE NEGATIVE (NEGATIVE); PH URINE 6.5; PROTEIN URINE TRACE mg/dL (NEGATIVE); TURBIDITY URINE CLEAR (CLEAR); UROBILINOGEN URINE NORMAL (NORMAL)
[2018-06-30 14:11] LABS: UR EPITHELIAL CELLS <10 /HPF (<10); URINE BACTERIA NEGATIVE /HPF; URINE RBC <10 /HPF (<10)
[2018-06-30 14:35] LABS: ALB/GLOB RATIO 1.1; ALBUMIN 3.9 g/dL (3.5-5.0); CREATININE 1.2 mg/dL (0.7-1.2); POTASSIUM 5.2 mmol/L (3.5-5.1); TOTAL BILIRUBIN 0.22 mg/dL (0.20-1.00); TOTAL PROTEIN 7.6 g/dL (6.3-8.3)
--- NOTE | 2018-06-30 15:14 | PROVIDER DOCUMENTATION ---
This chart was entered by Kecia Rodrigues Scribe, acting as scribe for Fatou Hoffman MD. HPI-Male Problem - General Chief Complaint: Male Stated Complaint: DECREASE URINE OUTPUT Time Seen by Provider: 06/30/18 13:25 Source: patient Allergies/Adverse Reactions: Patient Allergies Allergy/AdvReac Type Severity Reaction Status Date / Time cephalexin Allergy Severe SHORTNESS Verified 04/19/18 13:48 OF BREATH Home Medications: Home Medication List Medication Instructions Recorded Confirmed Last Taken Type Aspirin [Aspir-Low] 81 mg PO QAM 03/31/17 06/30/18 03/21/18 History Fluticasone 50 Mcg Nasal [place] 2 sprays MAT BID 03/31/17 06/30/18 03/21/18 History [Flonase] PRAVAstatin [Pravachol] 40 mg PO QHS 03/31/17 06/30/18 03/21/18 History Pentoxifylline E.r. [Trental] 400 mg PO BID 03/31/17 06/30/18 03/21/18 History Phenytoin Sodium Extended 400 mg PO QHS 03/31/17 06/30/18 03/21/18 History Carvedilol [Coreg] 12.5 mg PO BID tablet 04/03/17 06/30/18 03/21/18 Rx Phenobarbital 97.2 mg PO QHS 60 Days #21 tab 04/19/17 06/30/18 03/21/18 Rx Gabapentin 300 mg PO TID 06/06/17 06/30/18 03/21/18 History Yulee-3 Fatty Acids/Fish Oil [Fish 1 cap PO QHS 06/06/17 06/30/18 03/21/18 History Oil 1,000 mg Capsule] Omeprazole 20 mg PO QAM 06/06/17 06/30/18 03/21/18 History Furosemide [Lasix] 20 mg PO DAILY 08/18/17 06/30/18 03/21/18 History Menthol/Zinc Oxide Ointment 1 gm TOP BID 03/01/18 06/30/18 03/21/18 History [Calmoseptine Ointment] Phenobarbital 2 tab PO TID 03/01/18 06/30/18 03/21/18 History Losartan [Cozaar] 50 mg PO DAILY #30 tab 03/05/18 06/30/18 03/21/18 Rx Prednisone 10 mg PO QAM #30 tab 03/05/18 06/30/18 03/21/18 Rx Ergocalciferol (Vitamin D2) 50,000 unit PO Q7D 05/04/18 06/30/18 Unknown History [Vitamin D] Multivits,Ca,Minerals/Iron/FA 1 tab PO QAM 05/04/18 06/30/18 Unknown History [Thera-M Tablet] Teriparatide [Forteo] 20 mcg SQ QAM 05/04/18 06/30/18 Unknown History Albuterol [Albuterol Neb] 1.25 mg INH Q4H PRN PRN neb 05/09/18 06/30/18 Unknown Rx Acetaminophen [Mapap] 500 mg PO Q6H PRN PRN 06/30/18 06/30/18 Unknown History Calcium Carb, Citrate/Vit D3 1 tab PO QHS 06/30/18 06/30/18 Unknown History [Citracal + D ER Tablet] Guaifenesin E.r. [Mucinex] 400 mg PO TID 06/30/18 06/30/18 Unknown History Sulfamethoxazole/Trimethoprim 0.5 tab PO QHS 06/30/18 06/30/18 Unknown History [Sulfamethoxazole-Tmp Ds Tablet] Sulfamethoxazole/Trimethoprim 1 tab PO BID 06/30/18 06/30/18 Unknown History [Sulfamethoxazole-Tmp Ds Tablet] - History of Present Illness-Male Nature of Presenting Problem: 82 year old male presents to the ER via EMS from [place] with complaint of d ecreased urine output. Pt is poor historian. Pt also complains of being SOB but no more than normal. Denies any other complaints. Pt has bruising to left side of chest. Location of Complaint: reports: urethral, scrotal Onset/Duration: reports: unsure Timing: reports: still present Urinary Symptoms: reports: retention Review of Systems - Adult - REVIEW OF SYSTEMS - ADULT Constitutional: denies: chills, fever Eyes: reports: no symptoms reported Ears, Nose, Mouth & Throat: reports: no symptoms reported Cardiovascular: reports: no symptoms reported Respiratory: reports: cough, shortness of breath Gastrointestinal: reports: no symptoms reported Genitourinary: reports: hesitency, urinary retention Musculoskeletal: reports: no symptoms reported Integumentary: reports: no symptoms reported Neurological: reports: no symptoms reported Psychiatric: reports: no symptoms reported Endocrine: reports: no symptoms reported Hematologic/Lymphatic: reports: no symptoms reported Allergic/Immunologic: reports: no symptoms reported All Other Systems: Reviewed and Negative Past History - Adult - PAST MEDICAL HISTORY-ADULT Review of Records: reports: Nursing Assessment Review, Medications Reviewed Major Childhood Illnesses: reports: denies history Cardiovascular: reports: HTN Respiratory: reports: lung disease (pulmonary fibrosis with hypoxemia) Gastrointestinal: reports: cancer (colon), GERD Obstetrical/Gynecological: reports: denies history Genitourinary: reports: kidney disease Musculoskeletal: reports: denies history Neurological: reports: CVA, stroke deficits (left sided weakness), Seizures/Epilepsy Psychiatric: reports: denies history Endocrine/Immune: reports: Diabetes Other Conditions: reports: denies history - PRIOR SURGERIES/PROCEDURES Surgical/Procedure History: reports: appendectomy, tonsillectomy, bowel surgery (colon cancer), other (nephrectomy due to colon cancer) - IMMUNIZATION STATUS Childhood Immunizations: See Nurse Assessment Flu Vaccine: See Nurse Assessment - FAMILY HISTORY Family History: reviewed, not pertinent - SOCIAL HISTORY Smoking: denies Physical Exam-General - PHYSICAL EXAM-ADULT Initial Vital Signs Reviewed: Yes - CONSTITUTIONAL General Appearance: alert, mild distress - EYES Eyes: PERRL/EOMI, pink conjunctivae - HEAD, EARS, NOSE, MOUTH & THROAT HENMT: normocephalic/atraumatic, normal ENT inspection - NECK Neck: non-tender, normal inspection - RESPIRATORY Respiratory: decreased breath sounds, rhonchi - CARDIOVASCULAR Cardiovascular: normal peripheral pulses, regular rate, rhythm - GENITOURINARY Male Genitalia: deferred - MUSCULOSKELETAL Back Exam: no CVA tenderness, no vertebral tenderness Extremity: normal range of motion, normal inspection - SKIN Integumentary: normal color, warm/dry - NEUROLOGIC Neurologic: grossly normal, no motor/sensory deficits - PSYCHIATRIC Psych/Mental Status: normal mood/affect, normal thought content, normal thought process, oriented x 3 Progress - PLAN OF CARE/RESULTS Progress/Plan/Lab Results: Vital Signs - 8 hr 06/30/18 13:09 06/30/18 13:12 06/30/18 13:30 Temperature 97.7 F Pulse Rate 63 62 65 Respiratory Rate 20 20 19 Blood Pressure 136/73 136/73 O2 Sat by Pulse Oximetry 92 L 92 L 93 L 06/30/18 13:47 06/30/18 14:03 Temperature Pulse Rate 63 58 L Respiratory Rate 15 18 Blood Pressure 132/64 128/62 O2 Sat by Pulse Oximetry 93 L 97 Laboratory Results - last 24 hr 06/30/18 06/30/18 06/30/18 13:17 13:46 13:46 WBC 7.64 RBC 4.06 L Hgb 12.9 L Hct 39.9 L MCV 98.3 MCH 31.8 H MCHC 32.3 L RDW Std Deviation 13.7 Plt Count 138 MPV 9.8 Immature Gran % (Auto) 0.0 Neut % (Auto) 78.2 H Lymph % (Auto) 13.6 L Bradley % (Auto) 6.7 Eos % (Auto) 1.4 Baso % (Auto) 0.1 Immature Gran # (Auto) 0.00 Neut # (Auto) 5.97 Lymph # (Auto) 1.04 L Bradley # (Auto) 0.51 Eos # (Auto) 0.11 Baso # (Auto) 0.01 Sodium 141 Potassium 5.2 H Chloride 95 L Carbon Dioxide 32 Anion Gap 14 BUN 22 Creatinine 1.2 Estimated GFR/1.73 m2 58 BUN/Creatinine Ratio 18 Glucose 134 H POC Glucose 137 H Calculated Osmolality 287 Calcium 9.0 Total Bilirubin 0.22 AST 27 ALT 30 Alkaline Phosphatase 159 H Total Protein 7.6 Albumin 3.9 Globulin 3.7 Albumin/Globulin Ratio 1.1 Urine Source Urine Color Urine Turbidity Urine pH Ur Specific Meredith Urine Protein Ur Glucose (Stick) Ur Ketones (Stick) Urine Blood Urine Nitrite Urine Bilirubin Urobilinogen Dipstick Urine Leukocytes Urine WBC (Auto) Urine RBC (Auto) U Epithel Cells (Auto) Urine Bacteria (Auto) 06/30/18 14:00 WBC RBC Hgb Hct MCV MCH MCHC RDW Std Deviation Plt Count MPV Immature Gran % (Auto) Neut % (Auto) Lymph % (Auto) Bradley % (Auto) Eos % (Auto) Baso % (Auto) Immature Gran # (Auto) Neut # (Auto) Lymph # (Auto) Bradley # (Auto) Eos # (Auto) Baso # (Auto) Sodium Potassium Chloride Carbon Dioxide Anion Gap BUN Creatinine Estimated GFR/1.73 m2 BUN/Creatinine Ratio Glucose POC Glucose Calculated Osmolality Calcium Total Bilirubin AST ALT Alkaline Phosphatase Total Protein Albumin Globulin Albumin/Globulin Ratio Urine Source CATH Urine Color YELLOW Urine Turbidity CLEAR Urine pH 6.5 Ur Specific Meredith 1.010 Urine Protein TRACE A Ur Glucose (Stick) NEGATIVE Ur Ketones (Stick) NEGATIVE Urine Blood NEGATIVE Urine Nitrite NEGATIVE Urine Bilirubin NEGATIVE Urobilinogen Dipstick NORMAL Urine Leukocytes SMALL A Urine WBC (Auto) 10-20 A Urine RBC (Auto) <10 U Epithel Cells (Auto) <10 Urine Bacteria (Auto) NEGATIVE Orders Category Date Time Status [facility] Cath Insertion ORDERED Care 06/30/18 13:34 Active [facility] [Home with Leg Bag] DIRECTED Care 06/30/18 15:12 Ordered CBC WITH ELECTRONIC DIFF [HEME] Stat Lab 06/30/18 13:46 Completed CMP [COMPREHENSIVE METABOLIC PANEL] [CHEM] Stat Lab 06/30/18 13:46 Completed URINALYSIS W/POSS RFLX CULT [URINALYSIS] Stat Lab 06/30/18 14:00 Completed URINE CULTURE [RM] Routine Lab 06/30/18 14:44 Received Result Diagrams: 06/30/18 13:46 06/30/18 13:46 - EKG 1 Time of EKG reading by physician:: 13:15 EKG Read and Signed by:: Fatou Hoffman EKG Interpretation (*Must complete 3 of following elements*): Abnormal Rate: 68 Rhythm: normal sinus rhythm Comments: inferior infarct, age undetermined Departure - Departure Date of Disposition Decision: 06/30/18 Time of Disposition Decision: 15:13 DIAGNOSIS: Urinary retention due to benign prostatic hyperplasia Disposition: HOME 01 Certified Medical Emergency: Urgent Condition: Good Additional Freetext Instructions: ED Follow Up Instructions: You have been treated by a care provider in the Emergency Department. These instructions are being provided to you so you can have an understanding of how to care for yourself upon discharge. Upon discharge from the Emergency Department, you are responsible for making arrangements for follow-up care by a physician of your choice. Take all prescribed medications as directed. Return to the Emergency Department immediately for any new or worsening symptoms. You may call the Physician Referral phone number at [phone] to obtain a list of Physicians who are taking new patients. ED Follow Up Instructions: You have been treated by a care provider in the Emergency Department. These instructions are being provided to you so you can have an understanding of how to care for yourself upon discharge. Upon discharge from the Emergency Department, you are responsible for making arrangements for follow-up care by a physician of your choice. Take all prescribed medications as directed. Return to the Emergency Department immediately for any new or worsening sym ptoms. You may call the Physician Referral phone number at [phone] to obtain a list of Physicians who are taking new patients. Referrals and Follow-Ups: Osmar Vasquez MD [Primary Care Provider] - - Critical Care Note This patient required my direct & personal management of CC.: No Attestation - Physician/ HARINDER Attestation The physician spent face to face time with patient:: Yes Advanced Practice Provider documentation review:: Supervising physician onsite and consulted in the evaluation and care of this patient. The physician did have a face to face encounter with the patient. This chart was documented by the indicated scribe, (Kecia Rodrigues, Abby) and accurately reflects the services I performed and decisions made by me, Fatou Hoffman MD, as attested by the provider's signature.
[2018-06-30 16:16] LABS: ALLEN TEST YES; BE 15.1 mmoll (-3.0-3.0); BLOOD TYPE ARTERIAL; HCO3-(ACT) 36.6 mmoll (20.0-26.0); METHB 0.4 % (0.0-1.5); O2HB 92.7 % (95.0-99.0); PO2(98.6) 68 mmHg (60-100); SAMPLE BLOOD; SAO2 97.5 % (95.0-100.0); THB 10.7 g/dL (11.5-17.4); pH(98.6) 7.36 (7.35-7.45)
[2018-06-30 16:18] LABS: MODALITY CANNULA; PCO2(98.6) 77 mmHg (35-45)
[2018-06-30] MEDS ORDERED: LASIX IV ONE (16:21)
--- NOTE | 2018-06-30 16:38 | Diag Imaging Result Doc PS360 ---
EXAM: CHEST-PORTABLE HISTORY: sob/cp TECHNIQUE: Portable chest single view COMPARISON: 05/05/2018 FINDINGS: Poor inspiratory effort. There are increased interstitial markings throughout both lungs. No cardiomegaly. No pleural effusions identified. IMPRESSION: Increased interstitial markings believed to be pulmonary edema Electronically signed by Ottoniel Valencia 06/30/2018 4:35 PM
--- NOTE | 2018-06-30 17:49 | HISTORY AND PHYSICAL ---
PRIMARY CARE PHYSICIAN: Dr. Osmar Vasquez. HISTORY OF PRESENT ILLNESS: This is an 82-year-old resident of [place]. He has been more short of breath the last couple of weeks. Concerned about increased swelling in his feet. His is concerned he had pneumonia. He is an 82-year-old who came to the emergency room from [facility]. He is awake and alert. He is a little lethargic, but he is alert and oriented x3 and will answer questions appropriately. In the emergency room, workup appears he has underlying pulmonary fibrosis but also appears to have some pulmonary venous hypertension. We are going to see if we can diurese him some. I do not see evidence of pneumonia, but I am going to treat him as if he could have a pneumonia. He is allergic to cephalexin, so I will use IV Levaquin. PAST MEDICAL HISTORY: 1. Pulmonary fibrosis. 2. Hypertension. 3. CVA when he was 37. 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 He is at [facility]. Has a slight limp, but his activity, he is fairly independent. More short of breath, increased dyspnea. He does not know if he has had any fever or chills. He has home O2 between 2 and 3 L. 4. History of osteoporosis. PAST SURGICAL HISTORY: He has had a nephrectomy, a bowel resection for colon cancer. SOCIAL HISTORY: He lives in [facility]. Remote history of tobacco. in 2011. So above, I think the sitter was the 1 talking to me. He has no children. No history of alcohol or illicit drugs. FAMILY HISTORY: Father had diabetes, coronary artery disease. Mother had arthritis. ALLERGIES: Cephalexin causes shortness of breath. MEDICATIONS: Will review his home medications in [place]. REVIEW OF SYSTEMS: They do not note any weight gain or loss. No fever or chills. No change in hearing or visual acuity. He has partial paresis of the left arm and walks with a limp since his stroke. They have not noticed any new focal neurologic deficits. Endocrinologic: No significant history. GI/: No gross hematuria, dysuria. No change in his bowels or urinary habits, but he was having trouble voiding. They did put a Barajas catheter when he came in this time. PHYSICAL EXAMINATION: VITAL SIGNS: Temperature 97.7 degrees, pulse 59, respirations 17, blood pressure 152/80. HEENT: Pupils are equal and round. No rash is appreciated in the oral nasal mucosa. Conjunctiva pink. Sclerae clear. NECK: Supple. No cervical or supraclavicular adenopathy. LUNGS: Clear in all lung trevino. He has mild prolongation of expiratory phase and expiratory wheezing appreciated. CARDIOVASCULAR: Regular rhythm and rate without murmur or S3. ABDOMEN: Soft, nondistended, nontender. EXTREMITIES: He has 2+ pitting edema from the ankle to his knees. SKIN: Without rashes. LAB: White count 7,640, hematocrit is 39, platelet count 138,000. Sodium 141, potassium 5.2, chloride 95, BUN 22, creatinine 1.2, calcium 9.0, AST 27, ALT 30. ProBNP was 183. Alkaline phosphatase 159, albumin 3.9. Urinalysis unremarkable. Blood gases, pH is 7.36, pCO2 of 70, PO2 of 68; this is on 28% FiO2. Chest x-ray: Increased interstitial markings, believed could be pulmonary edema. He does have known underlying interstitial fibrosis. MEDICATIONS: At home he is on acetaminophen 500 mg q.6 hours p.r.n. He takes albuterol nebulized treatments 1.25 mg inhalation q.4 hours p.r.n., aspirin 81 mg a day, calcium carbonate and citrate with vitamin D3 1 tablet daily, Coreg 12.5 mg b.i.d., vitamin D 44923 units daily, Flonase 2 sprays b.i.d., Lasix 20 mg daily, gabapentin 300 mg t.i.d., Mucinex 400 mg t.i.d., Cozaar 50 mg a day, multivitamin 1 a day, omega-3 at bedtime, omeprazole 20 mg a day, Pravachol 40 mg a day, Trental ER 400 mg b.i.d., phenobarbital 97.2 mg p.o. at bedtime and then he takes 2 tablets t.i.d., phenytoin 400 mg at bedtime, prednisone 10 mg every morning. He is on Bactrim Double Strength 1 b.i.d. and He is on Forteo 20 mEq q.a.m. ASSESSMENT AND PLAN: 1. Underlying pulmonary fibrosis. He does have CO2 retention. He may have some underlying pulmonary venous hypertension. We can try and diurese him a little bit. I am going to treat him empirically for possible pneumonia, infectious process. Note that he had a myocardial perfusion scan. At that time his ejection fraction was 68% and no sign of ischemia. Normal left ventricular size. We will check troponin and CK. We will check serial EKGs. We are going to check a T4, TSH, B12, and folate. 2. Distant history of bowel resection for colon cancer. 3. Status post nephrectomy. Renal function looks good. 4. 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 cc: Nasir Arnold MD
[2018-06-30] MEDS ORDERED: ZOFRAN IV PRN (18:20)
[2018-06-30] MEDS ORDERED: TYLENOL PO PRN ×2 (18:20)
[2018-06-30] MEDS ORDERED: DUONEB (A & A) INH SCH (19:30)
[2018-06-30] MEDS ORDERED: ADVAIR 250/50 DISKUS INH SCH (21:00)
[2018-06-30] MEDS: LEVAQUIN 750 MG/D5W 750 MG/150 ML IVPB IV SCH (21:27)
[2018-06-30] MEDS: CALMOSEPTINE OINTMENT TOP SCH (21:28)
[2018-06-30] MEDS: SOLU-MEDROL IV SCH (21:28)
[2018-06-30] MEDS ORDERED: INSULIN PEN NEEDLES ONE (22:37)
[2018-06-30] MEDS: TRENTAL PO SCH (22:39)
[2018-06-30] MEDS: DILANTIN PO SCH (22:39)
[2018-06-30] MEDS: COREG PO SCH (22:40)
[2018-06-30] MEDS: PRAVACHOL PO SCH (22:40)
[2018-06-30] MEDS: FISH OIL CONCENTRATE PO SCH (22:40)
[2018-06-30] MEDS: BIDEX PO SCH (22:40)
[2018-06-30] MEDS: PHENOBARBITAL PO SCH (22:40)
[2018-06-30] MEDS: CITRACAL + D PO SCH (22:40)
[2018-06-30] MEDS: FLONASE NAS SCH (22:41)
[2018-07-01] MEDS: SOLU-MEDROL IV SCH ×2 (02:18→12:16)
[2018-07-01] MEDS: PRILOSEC PO SCH (06:05)
[2018-07-01 06:12] LABS: EOS# 0.03 X1000 (0.0-0.7); EOS% 0.7 % (0.0-10.0); HEMATOCRIT 44.5 % (42.0-52.0); HEMOGLOBIN 15.3 g/dL (14.0-18.0); LYMPH% 6.9 % (20.5-51.1); MCH 32.7 PG (27-31); MCHC 34.4 g/dL (33-37); MCV 95.1 FL (81-99); MONO# 0.09 X1000 (0.11-0.59); MONO% 2.1 % (1.7-9.3); MPV 9.8 FL (7.4-10.4); NEUT% 90.3 % (42.2-75.2); PLT 113 X1000 (130-400); RBC 4.68 XMIL (4.7-6.1); RDW 13.5 % (11.5-14.5); WBC 4.32 X1000 (4.8-10.8)
--- NOTE | 2018-07-01 06:28 | Diag Imaging Result Doc PS360 ---
EXAM: CHEST-PORTABLE HISTORY: pulmonary venous htn TECHNIQUE: Portable chest single view COMPARISON: 06/30/2018 FINDINGS: Poor inspiratory effort. No cardiomegaly. There are mild increased interstitial markings throughout both lungs. These are fairly similar to the prior exam. No pleural effusions identified. IMPRESSION: No interval improvement. Electronically signed by Ottoniel Valencia 07/01/2018 6:26 AM
[2018-07-01 06:33] LABS: AGAP 12; ALB/GLOB RATIO 0.9; ALBUMIN 3.4 g/dL (3.5-5.0); ALKALINE PHOSPHATASE 145 U/L (32-122); BUN 21 mg/dL (8-22); CALCIUM 8.9 mg/dL (8.8-10.2); CHLORIDE 95 mmol/L (98-107); CK PROFILE 56 U/L (24-204); COSMO 287; ESTIMATED GFR > 60; GLUCOSE 140 mg/dL (70-104); GOT 22 U/L (10-34); GPT 24 U/L (10-44); MAGNESIUM 1.8 mg/dL (1.5-2.7); POTASSIUM 5.2 mmol/L (3.5-5.1); SODIUM 141 mmol/L (136-145); TCO2 34 mmol/L (25-35); TOTAL BILIRUBIN 0.25 mg/dL (0.20-1.00); TOTAL PROTEIN 7.1 g/dL (6.3-8.3)
[2018-07-01 07:47] LABS: BANDS 2 % (0-1); LYMPHS 18 % (21-51); SEGS 80 % (42-75)
--- NOTE | 2018-07-01 07:54 | EKG Report ---
Test Performed on : 07/01/2018 06:58:10 AM Test Reason : chest pain Blood Pressure : / mmHG Vent. Rate : 059 BPM Atrial Rate : 059 BPM P-R Int : 206 ms QRS Dur : 084 ms QT Int : 434 ms P-R-T Axes : 054 -25 044 degrees QTc Int : 429 ms Sinus bradycardia. Inferior infarct (cited on or before 29-MAR-2017) Abnormal ECG When compared with ECG of 30-JUN-2018 16:38, (Unconfirmed) No significant change was found Confirmed by Jessy GOTTI, Julius ([id number]) on 07/01/2018 9:20:13 AM
[2018-07-01] MEDS: NEURONTIN PO SCH ×3 (08:28→21:14)
[2018-07-01] MEDS: FLONASE NAS SCH ×2 (08:28→21:40)
[2018-07-01] MEDS: ASPIRIN EC PO SCH (08:28)
[2018-07-01] MEDS: TRENTAL PO SCH ×2 (08:28→21:19)
[2018-07-01] MEDS: BIDEX PO SCH ×3 (08:28→21:19)
[2018-07-01] MEDS: THERA M PLUS PO SCH (08:29)
[2018-07-01] MEDS: CALMOSEPTINE OINTMENT TOP SCH ×2 (08:29→21:37)
[2018-07-01] MEDS: COZAAR PO SCH (08:29)
[2018-07-01] MEDS: COREG PO SCH ×2 (08:29→21:14)
--- NOTE | 2018-07-01 08:30 | EKG Report ---
Test Performed on : 06/30/2018 4:38:35 PM Test Reason : spiked t waves Blood Pressure : / mmHG Vent. Rate : 055 BPM Atrial Rate : 055 BPM P-R Int : 210 ms QRS Dur : 088 ms QT Int : 440 ms P-R-T Axes : 045 -12 030 degrees QTc Int : 420 ms Sinus bradycardia. with 1st degree AV block. Inferior infarct (cited on or before 29-MAR-2017) Abnormal ECG When compared with ECG of 30-JUN-2018 13:12, (Unconfirmed) MD interval has increased Unconfirmed Result
[2018-07-01] MEDS: PHENOBARBITAL PO SCH ×4 (08:35→21:19)
[2018-07-01] MEDS ORDERED: PRILOSEC PO SCH (09:00)
[2018-07-01] MEDS: ALBUTEROL NEB INH PRN ×5 (09:16→23:15)
[2018-07-01] MEDS: FORTEO SUBQ SCH (10:02)
--- NOTE | 2018-07-01 13:26 | EKG Report ---
Test Performed on : 06/30/2018 1:12:39 PM Test Reason : ED. NO ORDER IN [place] Blood Pressure : / mmHG Vent. Rate : 068 BPM Atrial Rate : 068 BPM P-R Int : 170 ms QRS Dur : 088 ms QT Int : 406 ms P-R-T Axes : -20 -17 026 degrees QTc Int : 431 ms Normal sinus rhythm. Inferior infarct (cited on or before 29-MAR-2017) Abnormal ECG When compared with ECG of 04-MAY-2018 03:58, No significant change was found Unconfirmed Result
[2018-07-01] MEDS: FLOMAX PO SCH (17:56)
--- NOTE | 2018-07-01 18:21 | ECHO REPORT ---
ORDER DATE: 06/30/2018 INTERPRETING PHYSICIAN: Dr. Tai Maria REQUESTING PHYSICIAN: Dr. Nasir Arnold. CLINICAL INDICATIONS: An 82-year-old male with congestive heart failure. M-MODE MEASUREMENTS: The study is difficult. The parasternal views are really very poor. The M- mode measurements are really not reliable in this case. Right ventricle end diastole: 2.8 cm. Left ventricle end diastole: 4.8 cm. Left ventricle end systole: 3.0 cm. Posterior wall: 1.1 cm. Interventricular septum: 1.1 cm. Left atrium: 3.2 cm. Aortic root: 3.9 cm. SUMMARY OF 2-DIMENSIONAL IMAGING: The left ventricle systolic function is basically normal. Ejection fraction visually estimated at 50-65%. The mitral valve appears to be grossly normal. Aortic valve shows sclerosis of the cusp without stenosis. Color flow mapping unremarkable. Continuous wave Doppler shows no evidence of any significant wave. The pulse wave Doppler of mitral inflow shows reversal of E:A ratio. The ratio is 0.7. Tissue Doppler of septal and lateral mitral annulus was not carried out. The tricuspid valve was not well visualized. The pulmonary valve was not well visualized either. There is no pericardial effusion, mass or thrombus. Optison was injected to opacify the chamber. The left ventricular contractility is normal. CONCLUSIONS: In summary, 1. This is a technically limited study. Parasternal views are really very poor suggesting that the patient probably has chronic obstructive pulmonary disease. The M-Mode measurements are really not reliable in this case. 2. Excellent left ventricular systolic function. 3. Sclerosis of the aortic valve without stenosis. 4. Calcification of mitral annulus without any mitral regurgitation of any significance or mitral valve stenosis. The study was very difficult. cc: MD Nasir Cronin MD Russell T. Barr, MD
[2018-07-01] MEDS: LEVAQUIN 750 MG/D5W 750 MG/150 ML IVPB IV SCH (20:50)
[2018-07-01] MEDS: PRAVACHOL PO SCH (21:14)
[2018-07-01] MEDS: FISH OIL CONCENTRATE PO SCH (21:14)
[2018-07-01] MEDS: DILANTIN PO SCH (21:14)
[2018-07-01] MEDS: CITRACAL + D PO SCH (21:19)
[2018-07-02] MEDS: ALBUTEROL NEB INH PRN ×3 (03:00→23:35)
[2018-07-02] MEDS ORDERED: PREDNISONE PO SCH ×2 (06:00→12:06)
[2018-07-02] MEDS: PRILOSEC PO SCH (06:02)
[2018-07-02] MEDS: SEPTRA DS PO SCH ×2 (09:10→20:41)
[2018-07-02] MEDS: FLONASE NAS SCH ×2 (09:10→20:40)
[2018-07-02] MEDS: FORTEO SUBQ SCH (09:10)
[2018-07-02] MEDS: NEURONTIN PO SCH ×3 (09:11→20:39)
[2018-07-02] MEDS: PHENOBARBITAL PO SCH ×5 (09:11→20:40)
[2018-07-02] MEDS: COZAAR PO SCH ×2 (09:11→09:34)
[2018-07-02] MEDS: THERA M PLUS PO SCH ×2 (09:11→09:21)
[2018-07-02] MEDS: BIDEX PO SCH ×3 (09:11→20:40)
[2018-07-02] MEDS: CALMOSEPTINE OINTMENT TOP SCH ×2 (09:11→20:41)
[2018-07-02] MEDS: COREG PO SCH ×3 (09:11→20:40)
[2018-07-02] MEDS: TRENTAL PO SCH ×2 (09:11→20:40)
[2018-07-02] MEDS: ASPIRIN EC PO SCH (09:11)
[2018-07-02] MEDS ORDERED: SEPTRA DS PO SCH (12:06)
[2018-07-02] MEDS: FLOMAX PO SCH (17:04)
[2018-07-02] MEDS: PRAVACHOL PO SCH (20:40)
[2018-07-02] MEDS: FISH OIL CONCENTRATE PO SCH (20:40)
[2018-07-02] MEDS: DILANTIN PO SCH (20:40)
[2018-07-02] MEDS: CITRACAL + D PO SCH (20:40)
[2018-07-03] MEDS: PRILOSEC PO SCH (06:39)
[2018-07-03] MEDS: PREDNISONE PO SCH (06:39)
[2018-07-03] MEDS: FLONASE NAS SCH ×2 (09:08→22:14)
[2018-07-03] MEDS: ASPIRIN EC PO SCH (09:09)
[2018-07-03] MEDS: BIDEX PO SCH ×3 (09:09→22:12)
[2018-07-03] MEDS: THERA M PLUS PO SCH (09:09)
[2018-07-03] MEDS: COZAAR PO SCH (09:09)
[2018-07-03] MEDS: FORTEO SUBQ SCH (09:09)
[2018-07-03] MEDS: PHENOBARBITAL PO SCH ×4 (09:09→22:13)
[2018-07-03] MEDS: COREG PO SCH ×2 (09:09→22:13)
[2018-07-03] MEDS: TRENTAL PO SCH ×2 (09:09→22:14)
[2018-07-03] MEDS: NEURONTIN PO SCH ×3 (09:09→22:12)
[2018-07-03] MEDS: SEPTRA DS PO SCH ×2 (09:09→22:13)
[2018-07-03] MEDS: CALMOSEPTINE OINTMENT TOP SCH ×2 (09:10→22:14)
[2018-07-03] MEDS: FLOMAX PO SCH (18:32)
[2018-07-03] MEDS: FISH OIL CONCENTRATE PO SCH (22:12)
[2018-07-03] MEDS: CITRACAL + D PO SCH (22:13)
[2018-07-03] MEDS: DILANTIN PO SCH (22:13)
[2018-07-03] MEDS: PRAVACHOL PO SCH (22:14)
[2018-07-04] MEDS: PRILOSEC PO SCH (07:10)
[2018-07-04] MEDS: PREDNISONE PO SCH (07:10)
[2018-07-04] MEDS: ALBUTEROL NEB INH PRN ×4 (07:48→23:25)
[2018-07-04] MEDS: FORTEO SUBQ SCH (09:46)
[2018-07-04] MEDS: ASPIRIN EC PO SCH (09:49)
[2018-07-04] MEDS: BIDEX PO SCH ×3 (09:49→21:50)
[2018-07-04] MEDS: COREG PO SCH ×2 (09:49→21:49)
[2018-07-04] MEDS: COZAAR PO SCH (09:49)
[2018-07-04] MEDS: TRENTAL PO SCH ×2 (09:49→21:50)
[2018-07-04] MEDS: NEURONTIN PO SCH ×3 (09:49→21:53)
[2018-07-04] MEDS: PHENOBARBITAL PO SCH ×3 (09:49→18:25)
[2018-07-04] MEDS: CALMOSEPTINE OINTMENT TOP SCH ×2 (09:49→21:53)
[2018-07-04] MEDS: SEPTRA DS PO SCH ×2 (09:49→21:50)
[2018-07-04] MEDS: FLONASE NAS SCH ×2 (09:49→21:48)
[2018-07-04] MEDS: THERA M PLUS PO SCH (09:49)
--- NOTE | 2018-07-04 14:18 | Extremity Venous Study ---
PROCEDURE NAME: Venous U/S Bilateral Legs - 06/30/2018 BILATERAL LOWER EXTREMITY VENOUS DUPLEX STUDY: REFERRING PHYSICIAN: Nasir Arnold MD READING PHYSICIAN: Angel Mayer MD RADIO PERSONALITY: Max. INDICATION: Shortness of breath and leg swelling. FINDINGS: The deep and superficial veins of both lower extremities were imaged throughout their course. They are compressible, patent, without thrombus. INTERPRETATION: No deep vein thrombosis or superficial vein thrombosis of either lower extremity. cc: MD Nasir Davila MD Russell T. Barr, MD
[2018-07-04] MEDS ORDERED: VITAMIN D PO SCH (18:20)
[2018-07-04] MEDS: FLOMAX PO SCH (18:55)
[2018-07-04] MEDS ORDERED: PHENOBARBITAL PO SCH (21:00)
[2018-07-04] MEDS: DILANTIN PO SCH (21:49)
[2018-07-04] MEDS: CITRACAL + D PO SCH (21:50)
[2018-07-04] MEDS: PRAVACHOL PO SCH (21:50)
[2018-07-04] MEDS: FISH OIL CONCENTRATE PO SCH (21:53)
[2018-07-05] MEDS: PREDNISONE PO SCH (06:56)
[2018-07-05] MEDS: PRILOSEC PO SCH (06:56)
[2018-07-05] MEDS: ALBUTEROL NEB INH PRN (07:42)
[2018-07-05 08:45] VITALS: BP 141/67
[2018-07-05] MEDS: FORTEO SUBQ SCH (09:18)
[2018-07-05] MEDS: NEURONTIN PO SCH (09:18)
[2018-07-05] MEDS: BIDEX PO SCH (09:18)
[2018-07-05] MEDS: COZAAR PO SCH (09:18)
[2018-07-05] MEDS: COREG PO SCH (09:18)
[2018-07-05] MEDS: CALMOSEPTINE OINTMENT TOP SCH (09:19)
[2018-07-05] MEDS: SEPTRA DS PO SCH (09:19)
[2018-07-05] MEDS: PHENOBARBITAL PO SCH (09:19)
[2018-07-05] MEDS: FLONASE NAS SCH (09:19)
[2018-07-05] MEDS: THERA M PLUS PO SCH (09:19)
[2018-07-05] MEDS: TRENTAL PO SCH (09:19)
[2018-07-05] MEDS: ASPIRIN EC PO SCH (09:19)
[2018-07-05] MEDS ORDERED: INSULIN PEN NEEDLES ONE (09:20)
--- NOTE | 2018-07-05 14:15 | DISCHARGE SUMMARY ---
ADMISSION DATE: 06/30/2018 DISCHARGE DATE: 07/05/2018 FINAL DIAGNOSES: 1. Acute cystitis with acute urinary retention. 2. Chronic urinary retention with recurrent urinary tract infections. 3. Pulmonary fibrosis, steroid responsive. 4. Chronic obstructive pulmonary disease. 5. Essential hypertension. 6. 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 7. Osteoporosis. HISTORY OF PRESENT ILLNESS: Mr. Krishna is an 82-year-old gentleman who resides at the [facility]. He was noted to have a urinary tract infection last week, and cultures and urinalysis were obtained from my office, and he was started on trimethoprim sulfa antibiotics. Unfortunately, several days later, he became unable to void and presented to the emergency room on the day of admission with a history of reduced urinary output. A Barajas catheter was placed in the emergency room, and approximately 1 L of urine was released. He also developed some ankle and calf edema. He has chronic shortness of breath due to chronic pulmonary fibrosis. He denied fever or chills. PAST MEDICAL HISTORY: Remarkable for a stroke 30 or 40 years ago with a history of post stroke epilepsy as well. He has a moderate left hemiparesis which has become somewhat more pronounced as he got older and particularly after a hip fracture last year. Physical examination revealed a chronically ill appearing elderly gentleman on a stretcher. Vital signs were unremarkable. HEENT exam was normal without trauma. Neck was supple. Lungs clear except for some crackles in both bases and occasional expiratory wheezing. Cardiac exam was unremarkable. Two plus edema was noted from the ankle to the knees. DATABASE: White blood count 7600, hematocrit 39%. Potassium 5.2, BUN of 22, creatinine 1.2. ProBNP 183. Urinalysis showed 10 to 20 WBCs. Chest x-ray showed increased interstitial markings. HOSPITAL COURSE: He was admitted with acute and chronic urinary retention as well as his multiple chronic problems. He required a Barajas catheter for approximately 48 hours and initially was treated with some intravenous Levaquin, but this was changed back to the [facility]. His Barajas catheter was removed, and he was able to void fairly well with postvoid residuals of approximately 240 mL. He complained of some excessive sleepiness in the morning, and his night time dose of phenobarbital was reduced. Phenobarbital level was 37.4, at the upper range of therapeutic. His phenytoin level was 16.7. He also complained of some intermittent myoclonic jerks of his right arm, and the cause of this is undetermined. 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 He will continue to be a do not resuscitate patient. DISCHARGE MEDICATIONS: Tamsulosin 0.4 mg daily after supper, Septra DS tablets 1 every 12 hours to finish his current supply, prednisone 10 mg q.a.m., phenobarbital 64.8 mg nightly at bedtime and 32.4 mg t.i.d., Trental 400 mg b.i.d., phenytoin extended release 400 mg nightly at bedtime, aspirin 81 mg daily, pravastatin 40 mg at bedtime, carvedilol 12.5 mg twice a day, gabapentin 300 mg 3 times a day, fish oil 1 daily, omeprazole 20 mg q.a.m., furosemide 20 mg daily, Calmoseptine ointment topically as needed, losartan 50 mg q.a.m., vitamin D2 50,000 units once weekly, multivitamin 1 daily, Forteo 20 mcg subcutaneously q.a.m., albuterol nebulizer 1.25 mg q.4 hours as needed for shortness of breath, guaifenesin ER 400 mg 3 times a day, Citracal Plus D 1 daily at bedtime, acetaminophen 500 mg q.6 hours as needed for pain. cc: Osmar Vasquez MD
== END 2018-07-05 14:02 | disposition home health service (06) | DRG 197 ==
LOC: SUPCPDRO → ED 12:58 → 3S 18:21 → 3N 07-02 17:41
PROVIDERS: ADMIT Internal Medicine; ATTEND Internal Medicine
CPT/HCPCS: 51702; 71010; 71045; 80053; 80184; 80185; 81001; 82550; 82805; 82948; 83735; 83880; 84443; 84484; 85025; 87088; 93005; 93010; 93306; 93970; 94640; 94761; 94799; 96374; 97110; 97116; 97161; 97530; 99285; A9270; C8929; J1940; J1956; J2930; J7506; J7512; Q9957; XXXXX

== ENCOUNTER 2018-08-06 11:28 | Inpatient (IN) ==
[2018-08-06 11:51] LABS: ALLEN TEST YES; BE 11.4 mmoll (-3.0-3.0); BLOOD TYPE ARTERIAL; HCO3-(ACT) 33.8 mmoll (20.0-26.0); METHB 1.1 % (0.0-1.5); O2(CT) 17.1 mL/dL (15.0-23.0); O2HB 96.4 % (95.0-99.0); PO2(98.6) 237 mmHg (60-100); SAMPLE BLOOD; SAO2 99.5 % (95.0-100.0); THB 12.2 g/dL (11.5-17.4); pH(98.6) 7.38 (7.35-7.45)
[2018-08-06 11:52] LABS: MODALITY NRB; PCO2(98.6) 66 mmHg (35-45)
[2018-08-06 12:13] LABS: BASO# 0.03 X1000 (0.0-0.2); BASO% 0.5 % (0.0-0.8); EOS# 0.14 X1000 (0.0-0.7); EOS% 2.5 % (0.0-10.0); HEMATOCRIT 38.3 % (42.0-52.0); HEMOGLOBIN 12.7 g/dL (14.0-18.0); IMM GRAN# 0.03 X1000 (0.0-0.04); IMM GRAN% 0.5 % (0.0-0.5); LYMPH# 0.82 X1000 (1.2-3.4); LYMPH% 14.5 % (20.5-51.1); MCH 32.1 PG (27-31); MCHC 33.2 g/dL (33-37); MCV 96.7 FL (81-99); MONO# 0.58 X1000 (0.11-0.59); MONO% 10.2 % (1.7-9.3); MPV 9.9 FL (7.4-10.4); NEUT# 4.07 X1000 (1.4-6.5); NEUT% 71.8 % (42.2-75.2); PLT 133 X1000 (130-400); RBC 3.96 XMIL (4.7-6.1); RDW 13.5 % (11.5-14.5); WBC 5.67 X1000 (4.8-10.8)
[2018-08-06 12:19] LABS: URINE SOURCE CATH
[2018-08-06 12:23] LABS: INR 1.15; PROTIME 15.6 Seconds (11.0-16.0)
[2018-08-06 12:24] LABS: PTT 32.1 Seconds (22.3-41.8)
[2018-08-06 12:24] LABS: BILIRUBIN URINE NEGATIVE (NEGATIVE); BLOOD URINE LARGE (NEGATIVE); COLOR YELLOW; GLUCOSE URINE NEGATIVE (NEGATIVE); KETONE URINE NEGATIVE (NEGATIVE); LEUKOCYTES URINE NEGATIVE (NEGATIVE); NITRITE URINE NEGATIVE (NEGATIVE); PROTEIN URINE 100 mg/dL (NEGATIVE); SP GRAVITY URINE 1.018; TURBIDITY URINE HAZY (CLEAR); UR EPITHELIAL CELLS <10 /HPF (<10); URINE BACTERIA NEGATIVE /HPF; URINE RBC TNTC /HPF (<10); URINE WBC <10 /HPF (<10); UROBILINOGEN URINE NORMAL (NORMAL)
[2018-08-06 12:26] LABS: D-DIMER 0.46 ug/mLFEU (0.0-0.52)
[2018-08-06 12:48] LABS: ALB/GLOB RATIO 1.2; ALBUMIN 3.6 g/dL (3.5-5.0); CALCIUM 8.7 mg/dL (8.8-10.2); CREATININE 1.2 mg/dL (0.7-1.2); POTASSIUM 5.1 mmol/L (3.5-5.1); TOTAL BILIRUBIN 0.32 mg/dL (0.20-1.00); TOTAL PROTEIN 6.7 g/dL (6.3-8.3)
--- NOTE | 2018-08-06 13:14 | Diag Imaging Result Doc PS360 ---
EXAM: CHEST-PORTABLE HISTORY: SOB TECHNIQUE: Portable chest single view COMPARISON: 07/01/2018 FINDINGS: Poor inspiratory effort. No cardiomegaly. There are bilateral infiltrates. There are tiny pleural effusions. The overall appearance is similar to that of the prior study. IMPRESSION: No interval improvement. Electronically signed by Ottoniel Valencia 08/06/2018 1:12 PM
[2018-08-06] MEDS ORDERED: LASIX IV ONE (13:16)
--- NOTE | 2018-08-06 13:52 | EKG Report ---
Test Performed on : 08/06/2018 11:39:11 AM Test Reason : SOB Blood Pressure : / mmHG Vent. Rate : 060 BPM Atrial Rate : 060 BPM P-R Int : 202 ms QRS Dur : 088 ms QT Int : 424 ms P-R-T Axes : 040 -18 026 degrees QTc Int : 424 ms Normal sinus rhythm. Inferior infarct (cited on or before 29-MAR-2017) Abnormal ECG When compared with ECG of 01-JUL-2018 06:58, Questionable change in initial forces of Inferior leads Unconfirmed Result
[2018-08-06] MEDS ORDERED: SOLU-MEDROL IV ONE (14:24)
--- NOTE | 2018-08-06 14:26 | PROVIDER DOCUMENTATION ---
This chart was entered by Lovely Reynoso Scribe, acting as scribe for Jackie Kam CRNP. HPI-Respiratory General - General Chief Complaint: Shortness of Breath Stated Complaint: SOB Time Seen by Provider: 08/06/18 11:37 Source: EMS Allergies/Adverse Reactions: Patient Allergies Allergy/AdvReac Type Severity Reaction Status Date / Time cephalexin Allergy Severe SHORTNESS Verified 08/05/18 09:01 OF BREATH Home Medications: Home Medication List Medication Instructions Recorded Confirmed Last Taken Type Aspirin [Aspir-Low] 81 mg PO QAM 03/31/17 06/30/18 03/21/18 History PRAVAstatin [Pravachol] 40 mg PO QHS 03/31/17 06/30/18 03/21/18 History Pentoxifylline E.r. [Trental] 400 mg PO BID 03/31/17 06/30/18 03/21/18 History Phenytoin Sodium Extended 400 mg PO QHS 03/31/17 06/30/18 03/21/18 History Carvedilol [Coreg] 12.5 mg PO BID tablet 04/03/17 06/30/18 03/21/18 Rx Gabapentin 300 mg PO TID 06/06/17 06/30/18 03/21/18 History [place]-3 Fatty Acids/Fish Oil [Fish 1 cap PO QHS 06/06/17 06/30/18 03/21/18 History Oil 1,000 mg Capsule] Omeprazole 20 mg PO QAM 06/06/17 06/30/18 03/21/18 History Furosemide [Lasix] 20 mg PO DAILY 08/18/17 06/30/18 03/21/18 History Menthol/Zinc Oxide Ointment 1 gm TOP BID 03/01/18 06/30/18 03/21/18 History [Calmoseptine Ointment] Phenobarbital 2 tab PO TID 03/01/18 06/30/18 03/21/18 History Losartan [Cozaar] 50 mg PO DAILY #30 tab 03/05/18 06/30/18 03/21/18 Rx Ergocalciferol (Vitamin D2) 50,000 unit PO Q7D 05/04/18 06/30/18 Unknown History [Vitamin D] Multivits,Ca,Minerals/Iron/FA 1 tab PO QAM 05/04/18 06/30/18 Unknown History [Thera-M Tablet] Teriparatide [Forteo] 20 mcg SQ QAM 05/04/18 06/30/18 Unknown History Albuterol [Albuterol Neb] 1.25 mg INH Q4H PRN PRN neb 05/09/18 06/30/18 Unknown Rx Acetaminophen [Mapap] 500 mg PO Q6H PRN PRN 06/30/18 06/30/18 Unknown History Calcium Carb, Citrate/Vit D3 1 tab PO QHS 06/30/18 06/30/18 Unknown History [Citracal + D ER Tablet] Guaifenesin E.r. [Mucinex] 400 mg PO TID 06/30/18 06/30/18 Unknown History Fluticasone 50 Mcg Nasal [place] 2 sprays INTRANASAL BID #0 07/05/18 06/30/18 03/21/18 Rx [Flonase] Phenobarbital 64.8 mg PO QHS #30 tab 07/05/18 Unknown Rx Prednisone 10 mg PO DAILY@0600 tab 07/05/18 Unknown Rx Sulfamethoxazole/Tmp D.s. [Septra 1 ea PO Q12HR tab 07/05/18 Unknown Rx Ds] Tamsulosin [Flomax] 0.4 mg PO DAILY@1800 cap 07/05/18 Unknown Rx Tamsulosin [Flomax] 0.4 mg PO DAILY #7 cap 08/03/18 Unknown Rx - History of Present Illness-Resp Nature of Presenting Problem: Patient is a 82 year old male who presents to the ED via EMS with shortness of breath. EMS states patient's O2 sat was 86% on their arrival to his SNF. Patient received a breathing treatment, NC O2 increased, and O2 sat mildly improved. EMS states patient's O2 sat dropped again and he was placed on a non rebreather mask at 15 L. History of pulmonary fibrosis and CHF. On 3L NC daily. Patient does not report chest pain. Quality of Pain: reports: tightness Severity in ED: reports: moderate Onset/Duration: reports: just prior to arrival Timing: reports: still present Current Respiratory Medication Therapy: Initiated see nurses note Associated Symptoms: reports: shortness of breath Similar Symptoms Previously?: No Recently seen or treated by another doctor?: Yes Review of Systems - Adult - REVIEW OF SYSTEMS - ADULT ROS:: unobtainable per condition Constitutional: reports: no symptoms reported Eyes: reports: no symptoms reported Ears, Nose, Mouth & Throat: reports: no symptoms reported Cardiovascular: reports: no symptoms reported Respiratory: reports: no symptoms reported Gastrointestinal: reports: no symptoms reported Genitourinary: reports: no symptoms reported Musculoskeletal: reports: no symptoms reported Integumentary: reports: no symptoms reported Neurological: reports: no symptoms reported Psychiatric: reports: no symptoms reported Endocrine: reports: no symptoms reported Hematologic/Lymphatic: reports: no symptoms reported Allergic/Immunologic: reports: no symptoms reported All Other Systems: Reviewed and Negative Past History - Adult - PAST MEDICAL HISTORY-ADULT Review of Records: reports: Old Records Reviewed, Nursing Assessment Review, Medications Reviewed, Social history reviewed & non-contributory. Major Childhood Illnesses: reports: denies history Cardiovascular: reports: CHF, HTN, hyperlipidemia Respiratory: reports: COPD, lung disease (pulmonary fibrosis with hypoxemia) Gastrointestinal: reports: cancer (colon), GERD Obstetrical/Gynecological: reports: denies history Genitourinary: reports: kidney disease Musculoskeletal: reports: denies history Neurological: reports: CVA, stroke deficits (left sided weakness), Seizures/Epilepsy Psychiatric: reports: denies history Endocrine/Immune: reports: Diabetes Diabetes Type: Type 2 Other Conditions: reports: denies history - PRIOR SURGERIES/PROCEDURES Surgical/Procedure History: reports: tonsillectomy, bowel surgery, other, appendectomy - IMMUNIZATION STATUS Childhood Immunizations: See Nurse Assessment Flu Vaccine: See Nurse Assessment - FAMILY HISTORY Family History: reviewed, not pertinent - SOCIAL HISTORY Smoking: cigarettes (former) Substance Use: denies Living Situation: family Physical Exam-General - PHYSICAL EXAM-ADULT Initial Vital Signs Reviewed: Yes - CONSTITUTIONAL General Appearance: alert, moderate distress, other (drowsy. patient can only speak one word at a time.) - EYES Eyes: PERRL/EOMI. negative: scleral icterus, sunken eyes - RESPIRATORY Respiratory: respiratory distress (moderate), decreased breath sounds (bilaterally), accessory muscle use, retractions. negative: crackles, stridor - CARDIOVASCULAR Cardiovascular: normal peripheral pulses, regular rate, rhythm. negative: tachycardia, systolic murmur - GASTROINTESTINAL (ABDOMEN) Abdominal Exam: normal bowel sounds, non tender, soft. negative: guarding, rebound - MUSCULOSKELETAL Extremity: non-tender, normal inspection. negative: deformity, erythema - SKIN Integumentary: normal color, normal turgor, warm/dry. negative: cyanosis, ecchymosis, erythema, jaundice - NEUROLOGIC Neurologic: other (unable to assess per patient's condition) - PSYCHIATRIC Psych/Mental Status: other (drowsy.). negative: anxious, paranoid Progress - PLAN OF CARE/RESULTS Progress/Plan/Lab Results: Vital Signs - 8 hr 08/06/18 11:33 08/06/18 12:27 Temperature 97.6 F Pulse Rate 61 65 Respiratory Rate 26 H 20 Blood Pressure 121/62 113/66 O2 Sat by Pulse Oximetry 100 96 Laboratory Results - last 24 hr 08/06/18 08/06/18 08/06/18 11:37 12:00 12:00 WBC RBC Hgb Hct MCV MCH MCHC RDW Std Deviation Plt Count MPV Immature Gran % (Auto) Neut % (Auto) Lymph % (Auto) [place] % (Auto) Eos % (Auto) Baso % (Auto) Immature Gran # (Auto) Neut # (Auto) Lymph # (Auto) [place] # (Auto) Eos # (Auto) Baso # (Auto) PT INR PTT (Actin FS) D-Dimer, Quantitative Specimen Type ARTERIAL Sample Site L RADIAL pH 7.38 pCO2 66 H* pO2 237 H HCO3 33.8 H Base Excess 11.4 H Oxyhemoglobin 96.4 ABG O2 Sat (Calculated) 17.1 ABG O2 Saturation 99.5 ABG Carboxyhemoglobin 2.00 ABG Methemoglobin 1.1 Nasir Test YES A-a O2 Difference 394.0 Total Hemoglobin 12.2 Lactate 1.10 Liter Flow 15.0 Blood Gas Modality NRB FiO2 % 100.0 Sodium Potassium Chloride Carbon Dioxide Anion Gap BUN Creatinine Estimated GFR/1.73 m2 BUN/Creatinine Ratio Glucose Calculated Osmolality Calcium Total Bilirubin AST ALT Alkaline Phosphatase Creatine Kinase Troponin T < 0.010 [id number]-Htzxtjtlpma Pept 587 H Total Protein Albumin Globulin Albumin/Globulin Ratio Plasma Lactate Urine Source Urine Color Urine Turbidity Urine pH Ur Specific [place] Urine Protein Ur Glucose (Stick) Ur Ketones (Stick) Urine Blood Urine Nitrite Urine Bilirubin Urobilinogen Dipstick Urine Leukocytes Urine WBC (Auto) Urine RBC (Auto) U Epithel Cells (Auto) Urine Bacteria (Auto) 08/06/18 08/06/18 08/06/18 12:00 12:00 12:00 WBC 5.67 RBC 3.96 L Hgb 12.7 L Hct 38.3 L MCV 96.7 MCH 32.1 H MCHC 33.2 RDW Std Deviation 13.5 Plt Count 133 MPV 9.9 Immature Gran % (Auto) 0.5 Neut % (Auto) 71.8 Lymph % (Auto) 14.5 L [place] % (Auto) 10.2 H Eos % (Auto) 2.5 Baso % (Auto) 0.5 Immature Gran # (Auto) 0.03 Neut # (Auto) 4.07 Lymph # (Auto) 0.82 L [place] # (Auto) 0.58 Eos # (Auto) 0.14 Baso # (Auto) 0.03 PT 15.6 INR 1.15 PTT (Actin FS) 32.1 D-Dimer, Quantitative 0.46 Specimen Type Sample Site pH pCO2 pO2 HCO3 Base Excess Oxyhemoglobin ABG O2 Sat (Calculated) ABG O2 Saturation ABG Carboxyhemoglobin ABG Methemoglobin Nasir Test A-a O2 Difference Total Hemoglobin Lactate Liter Flow Blood Gas Modality FiO2 % Sodium 140 Potassium 5.1 Chloride 96 L Carbon Dioxide 33 Anion Gap 11 BUN 23 H Creatinine 1.2 Estimated GFR/1.73 m2 58 BUN/Creatinine Ratio 19 Glucose 129 H Calculated Osmolality 285 Calcium 8.7 L Total Bilirubin 0.32 AST 33 ALT 32 Alkaline Phosphatase 151 H Creatine Kinase Troponin T [id number] Pept Total Protein 6.7 Albumin 3.6 Globulin 3.1 Albumin/Globulin Ratio 1.2 Plasma Lactate Urine Source Urine Color Urine Turbidity Urine pH Ur Specific [place] Urine Protein Ur Glucose (Stick) Ur Ketones (Stick) Urine Blood Urine Nitrite Urine Bilirubin Urobilinogen Dipstick Urine Leukocytes Urine WBC (Auto) Urine RBC (Auto) U Epithel Cells (Auto) Urine Bacteria (Auto) 08/06/18 08/06/18 08/06/18 12:00 12:10 13:02 WBC RBC Hgb Hct MCV MCH MCHC RDW Std Deviation Plt Count MPV Immature Gran % (Auto) Neut % (Auto) Lymph % (Auto) [place] % (Auto) Eos % (Auto) Baso % (Auto) Immature Gran # (Auto) Neut # (Auto) Lymph # (Auto) [place] # (Auto) Eos # (Auto) Baso # (Auto) PT INR PTT (Actin FS) D-Dimer, Quantitative Specimen Type Sample Site pH pCO2 pO2 HCO3 Base Excess Oxyhemoglobin ABG O2 Sat (Calculated) ABG O2 Saturation ABG Carboxyhemoglobin ABG Methemoglobin Nasir Test A-a O2 Difference Total Hemoglobin Lactate Liter Flow Blood Gas Modality FiO2 % Sodium Potassium Chloride Carbon Dioxide Anion Gap BUN Creatinine Estimated GFR/1.73 m2 BUN/Creatinine Ratio Glucose Calculated Osmolality Calcium Total Bilirubin AST ALT Alkaline Phosphatase Creatine Kinase 59 Troponin T Oil-D-Anlanjmcpkm Pept Total Protein Albumin Globulin Albumin/Globulin Ratio Plasma Lactate 1.2 Urine Source CATH Urine Color YELLOW Urine Turbidity HAZY Urine pH 8.0 Ur Specific [place] 1.018 Urine Protein 100 A Ur Glucose (Stick) NEGATIVE Ur Ketones (Stick) NEGATIVE Urine Blood LARGE A Urine Nitrite NEGATIVE Urine Bilirubin NEGATIVE Urobilinogen Dipstick NORMAL Urine Leukocytes NEGATIVE Urine WBC (Auto) <10 Urine RBC (Auto) TNTC A U Epithel Cells (Auto) <10 Urine Bacteria (Auto) NEGATIVE Orders Category Date Time Status Cardiac Monitoring DIRECTED Care 08/06/18 12:03 Active IV Insertion ORDERED Care 08/06/18 12:03 Active Notify MD of + Sepsis Screen NOW Care 08/06/18 12:03 Active Notify Physician As Ordered Care 08/06/18 12:03 Active Nursing- Obtain EKG ONCE Care 08/06/18 11:37 Active Saline Loc NOW Care 08/06/18 11:37 Active CHEST-1 VIEW [RAD] Stat Exams 08/06/18 12:03 Ordered CHEST-PORTABLE [RAD] Stat Exams 08/06/18 Completed ABG [RESP] Routine Lab 08/06/18 11:37 Completed BLOOD CULTURE [BLDCUL] Stat Lab 08/06/18 12:00 Ordered CBC WITH ELECTRONIC DIFF [HEME] Stat Lab 08/06/18 12:00 Completed CK PROFILE [SP CHEM] Stat Lab 08/06/18 12:00 Completed COMPREHENSIVE METABOLIC PANEL [CHEM] Stat Lab 08/06/18 12:00 Completed D-DIMER [COAG] Stat Lab 08/06/18 12:00 Completed LACTATE, PLASMA [CHEM] Lab 08/06/18 13:02 Completed LACTATE, PLASMA [CHEM] Lab 08/06/18 15:15 Uncollected LACTATE, PLASMA [CHEM] Lab 08/06/18 18:15 Uncollected PRO B-NATRIURETIC PEPTIDE Stat Lab 08/06/18 12:00 Completed PROTIME WITH INR [COAG] Stat Lab 08/06/18 12:00 Completed PTT [COAG] Stat Lab 08/06/18 12:00 Completed TROPONIN T Stat Lab 08/06/18 12:00 Completed URINALYSIS W/POSS RFLX CULT [URINALYSIS] Stat Lab 08/06/18 12:10 Completed Furosemide [Lasix] Med 08/06/18 13:16 Discontinued 40 mg IV NOW ONE Methylprednisolone Sod Succ [Solu-Medrol] Med 08/06/18 14:24 Once 40 mg IV NOW ONE Oxygen Device Stat Oth 08/06/18 12:03 Active EKG [EKG] Stat Ther 08/06/18 11:37 Draft 1422: Spoke with Dr. Vasquez (patient's PCP) regarding acute respiratory failure with hypoxia and inpatient admission. Per Dr. Vasquze, admit orders placed and 40mg Solu-Medrol IV ordered. Dr. Vasquez will see patient and admit. Result Diagrams: 08/06/18 12:00 08/06/18 12:00 - EKG 1 Time of EKG reading by physician:: 11:39 EKG Read and Signed by:: Anurag Ayon EKG Interpretation (*Must complete 3 of following elements*): Abnormal Rate: 60 Rhythm: normal sinus rhythm [place]: normal Comments: inferior infarct, age undetermined - XRAY 1 XRAY Study: Chest Impression: See EMR Report ( EXAM: CHEST-PORTABLE HISTORY: SOB TECHNIQUE: Portable chest single view COMPARISON: 07/01/2018 FINDINGS: Poor inspiratory effort. No cardiomegaly. There are bilateral infiltrates. There are tiny pleural effusions. The overall appearance is similar to that of the prior study. IMPRESSION: No interval improvement. Electronically signed by Ottoniel Valencia 08/06/2018 1:12 PM 08/06/18 1312 Interpreting Physician: Ottoniel Valencia MD Dictated Date/Time: 08/06/18 1311 cc: Jackie Kam; Osmar Vasquez MD) - CONSULTS/PCP/HOSPITALIST Notification #1 *Consult/PCP/Hospitalist*: MD Christina Time Discussed: 14:22 Reason/Comments: Acute respiratory failure with hypoxia Consult Disposition: Admit Departure - Departure Date of Disposition Decision: 08/06/18 Time of Disposition Decision: 14:22 DIAGNOSIS: Acute respiratory failure with hypoxia Disposition: ADMITTED INPATIENT 09 Certified Medical Emergency: Emergent Condition: Fair Referrals and Follow-Ups: Osmar Vasquez MD [Primary Care Provider] - [facility],Shakeel Vargas [Outside Vendor] - - Critical Care Note This patient required my direct & personal management of CC.: No Attestation - Physician/ HARINDER Attestation Patient care was provided by Advanced Practice Provider:: Yes Advanced Practice Provider:: Jackie Kam Advanced Practice Provider documentation review:: The Mid-level provider documentation, treatment plan and medical decision making was reviewed by the physician who agrees with all treatment and medical decision making by the MLP. The physician spent face to face time with patient:: Yes Advanced Practice Provider documentation review:: Supervising physician onsite and consulted in the evaluation and care of this patient. The physician did have a face to face encounter with the patient. This chart was documented by the indicated scribe, (Lovely Reynoso Scribe) and accurately reflects the services I performed and decisions made by me, Jackie Kam CRNP, as attested by the provider's signature.
[2018-08-06] MEDS ORDERED: SALINE LOCK IV FLUID XX ONE (18:48)
[2018-08-06] MEDS ORDERED: LEVAQUIN 500 MG/D5W 500 MG/100 ML IVPB IV SCH (19:15)
[2018-08-06] MEDS: SOLU-MEDROL IV SCH (20:18)
[2018-08-06] MEDS: TRENTAL PO SCH (20:19)
[2018-08-06] MEDS: CITRACAL + D PO SCH (20:19)
[2018-08-06] MEDS: FLOMAX PO SCH (20:19)
[2018-08-06] MEDS: LOVENOX SUBQ SCH (20:19)
[2018-08-06] MEDS: PHENOBARBITAL PO SCH (20:20)
[2018-08-06] MEDS: CALMOSEPTINE OINTMENT TOP SCH (20:20)
--- NOTE | 2018-08-06 21:20 | HISTORY AND PHYSICAL ---
CHIEF COMPLAINT: Hypoxemia. HISTORY OF PRESENT ILLNESS: Mr. Krishna is an 82-year-old gentleman who lives at [facility]. He was diagnosed last year with pulmonary fibrosis and seems to have stabilized somewhat with oral prednisone. 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 He has been hospitalized multiple times over the past year and a half. His only family is his sister. Three days prior to this admission, he developed difficulty voiding and was evaluated in the emergency room, where he was found to have an elevated bladder scan, and a Barajas catheter was placed. The notable result was greater than 350 mL, and the catheter was left in. His urinalysis was unremarkable, with no evidence of infection. Today at the [facility], he was noted to be hypoxemic with an oxygen saturation in the 70s on 2 liters of nasal cannula oxygen. Since arriving here, he initially had difficulty maintaining saturations, but on 100% nonrebreather he had some CO2 retention that was brought back to 50% with Ventimask, and his O2 saturation is 100% on this support. His urinalysis now shows oxb-owqczcgl-zp-count white blood cells and bacteria. He denies dysuria, fever or chills. He does have chronic shortness of breath due to his pulmonary fibrosis. PAST MEDICAL HISTORY: Greater than 30 years ago he had a stroke which resulted in [id number] left hemiparesis and post-stroke epilepsy. During his recent admission, his phenobarbital level was felt to be somewhat high, and he was slightly sedated, so the dose was reduced. His difficulty walking has become more prominent after a hip fracture last year. ALLERGIES: He has a history of allergy to cephalexin. HOME MEDICATIONS: Acetaminophen 500 mg every 6 hours p.r.n., half-strength albuterol nebulizers every 4 hours p.r.n. for shortness of breath, aspirin 81 mg daily, Citracal plus D 1 at bedtime, carvedilol 12.5 mg twice a day, vitamin D2 at 50,000 units once weekly, fluticasone nasal spray b.i.d., furosemide 20 mg daily, gabapentin 300 mg 3 times a day, losartan 50 mg daily, fish oil 1 gram daily, phenobarbital 64.8 mg at bedtime and 16.2 mg 3 times a day, Pravastatin 40 mg at bedtime, prednisone 10 mg daily, tamsulosin 0.4 mg at bedtime, Forteo 20 mcg subcutaneously daily. FAMILY HISTORY: Noncontributory. SOCIAL HISTORY: His of breast cancer approximately 10 years ago. He has no children. His only relative is his sister, who is his healthcare proxy. He has lived at [facility] for approximately 6 months after the assisted living facility he was in repeatedly sent him to the ER at the drop of a hat. REVIEW OF SYSTEMS: GENERAL: No fever, chills, night sweats, weight loss or headache. RESPIRATORY: Positive for shortness of breath with exertion. He has an occasional cough and rare white foamy sputum production. CARDIOVASCULAR: No recent chest pain, orthopnea, PND, palpitations, or syncope. GI: His appetite has been relatively good. He denies any nausea, vomiting, diarrhea or constipation. No melena or bright red blood per rectum. : During his last admission, his Barajas catheter was removed after approximately 48 hours, and his post-void residuals were approximately 240 mL by the bladder scan. ORTHOPAEDIC: He continues to have some hip pain following his surgical repair. He walks very short distances using a 4-wheeled walker. PHYSICAL EXAMINATION: VITAL SIGNS: Temperature 98.2, blood pressure 128/64, pulse 57, respiratory rate 17. O2 saturation is 98% on 50% mask. GENERAL APPEARANCE: This is a [id number], elderly gentleman who recognizes me and is able to sit up for examination. HEENT: Pupils equal, round, and reactive to light. Extraocular movements intact. Oropharynx is benign with moist mucous membranes. NECK: Supple without JVD, lymphadenopathy or bruits. LUNGS: Bilateral coarse, sticky crackles heard, more in the bases but extending up approximately two-thirds of the posterior chest wall. Only the apices seem clear of crackles. CARDIOVASCULAR: Regular rate and rhythm. No murmurs. ABDOMEN: Soft, flat and nontender. EXTREMITIES: Trace ankle edema bilaterally with diminished muscle mass bilaterally. NEUROLOGIC: He has a longstanding claw deformity of the left hand and mild weakness of the left leg. DATABASE: White count 5670, hemoglobin 12.7, hematocrit 38.3, platelet count normal. Blood gas: pH of 7.38, pCO2 of 66, pO2 of 237 on nonrebreather. Sodium 140, potassium 5.1, chloride 96. CO2 is 33, BUN 23, creatinine 1.2, glucose 129. ProBNP 587. Lactate is normal. Urinalysis shows large blood, eun-ljdcebba-oz-count red blood cells, rare bacteria, less than 10 WBCs. ASSESSMENT: 1. hypoxia due to an exacerbation of his pulmonary fibrosis. 2. urinary retention, possible UTI. 3. 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 4. COPD. 5. osteoporosis PLAN: Will admit for exacerbation of pulmonary fibrosis with hypoxemia. His urinary retention will be evaluated by Urology, and he may be a candidate for a suprapubic catheter. Will treat overnight with 1 dose of Levaquin. . cc: Osmar Vasquez MD MTDD
[2018-08-06] MEDS: ALBUTEROL NEB INH SCH (22:00)
[2018-08-07] MEDS: ALBUTEROL NEB INH SCH ×4 (03:32→21:43)
[2018-08-07] MEDS: NEURONTIN PO SCH ×3 (09:45→18:01)
[2018-08-07] MEDS: SOLU-MEDROL IV SCH ×2 (09:45→20:27)
[2018-08-07] MEDS: PHENOBARBITAL PO SCH ×4 (09:45→21:03)
[2018-08-07] MEDS: TRENTAL PO SCH ×2 (09:45→20:27)
[2018-08-07] MEDS: COZAAR PO SCH (09:45)
[2018-08-07] MEDS: ASPIRIN EC PO SCH (09:45)
[2018-08-07] MEDS: CALMOSEPTINE OINTMENT TOP SCH ×2 (09:49→20:28)
--- NOTE | 2018-08-07 12:32 | CONSULTATION ---
DATE OF CONSULTATION: 08/07/2018 CHIEF COMPLAINT: Urinary retention. HISTORY OF PRESENT ILLNESS: Mr. Krishna is an 82-year-old, who lives at [facility], who presents in consultation regarding urinary retention. The patient has a long history of pulmonary fibrosis and COPD. The patient has also suffered a stroke back in his 30s and had some residual left hemiparesis. He has been hospitalized multiple times in the past year and recently presented to the emergency room on Sunday with urinary retention, and had indwelling catheter inserted at that time. Uncertain as to how much returned, but he did have an elevated bladder scan at that time. A catheter was inserted and has been draining well. Approximately 350cc was removed from the catheter while in the hospital and he was discharged back to his facility. Urinalysis at that time was negative for blood or inflammatory cells. The patient was at his [facility] facility yesterday and became hypoxic, with oxygen saturations in the 70s, was started on 2 L nasal cannula and then advanced to a Ventimask and his saturations improved. The patient's labs are all within normal limits. His urinalysis did show a large amount of leukocytes and blood, likely from indwelling catheter, but there was no bacteria present. Urology was consulted for further recommendations regarding urinary retention. The patient is a poor historian, and unable to give much history today during our conversation. He states he had a right nephrectomy due to renal mass. Most is obtained from the prior notes. PAST MEDICAL HISTORY: CVA in 1967, leading to left hemiparesis and epilepsy. Diabetes. Hypertension. Congestive heart failure. Hyperlipidemia. History of colon cancer. Gastroesophageal reflux disease. History of right renal cell carcinoma. PAST SURGICAL HISTORY: Nephrectomy. Colon resection for colon cancer. Appendectomy. Cholecystectomy. Tonsillectomy. Knee replacement. ALLERGIES: Keflex. MEDICATIONS: Aspirin 81 mg p.o. daily. Pravachol 40 mg p.o. daily. Pentoxifylline 400 mg p.o. b.i.d. Phenytoin 40 mg p.o. Coreg 12.5 mg p.o. b.i.d. Gabapentin 300 mg t.i.d. Fish oil. Omeprazole 20 mg p.o. daily. Lasix 20 mg p.o. daily. Phenobarbital 2 tablets p.o. t.i.d. Cozaar 50 mg p.o. daily. Vitamin D2 50,000 units p.o. Teriparatide 20 mcg. Albuterol 1.25 mg inhaled q.4 hours as needed. Mucinex 400 mg p.o. t.i.d. Flonase intranasal b.i.d. Prednisone 10 mg p.o. daily. Flomax 0.4 mg daily. FAMILY HISTORY: No pertinent family history. SOCIAL HISTORY: The patient's approximately 10 years ago from breast cancer. He lives at [facility]. REVIEW OF SYSTEMS: Twelve-point review of systems performed with all pertinent positives and negatives in the HPI. PHYSICAL EXAMINATION: Vital Signs: Temperature 98.0 degrees, heart rate 65, blood pressure 157/69, oxygen saturation 97% on room air. General: No acute distress, resting comfortably in bed. The patient appears chronically ill. He is alert and oriented to person and place, but not time and situation. HEENT: Normocephalic, atraumatic. Pupils equal, round and reactive to light. Oropharynx with moist mucous membranes. Neck: Trachea midline. No obvious masses. Lungs: Coarse lung sounds bilaterally, with slight wheezing present at the bases. Cardiovascular: Regular rate and rhythm. Abdomen: Soft, nontender, nondistended. Multiple abdominal incisions visualized. One large exploratory laparotomy incision in the midline. Extremities: 1+ lower extremity edema. : No suprapubic tenderness. Urethral catheter in place draining clear yellow urine. The patient has a small amount of scrotal edema. Bilateral testicles palpated without any masses. Digital rectal exam shows normal prostate, with no obvious prostatic enlargement. No nodules palpated or rectal masses. Neurologic: The patient has a slight deformity of the left hand, as well as upper and lower extremity weakness. Able to move all extremities. DIAGNOSTIC DATA: White blood cell count 5.7, hemoglobin 12.7, hematocrit 38.3, platelets 133,000. Sodium 140, potassium 5.1, chloride 96, bicarb 33, BUN 23, creatinine 1.2, glucose 129. Pro beta natriuretic peptide 587. ASSESSMENT/PLAN: Mr. Krishna is an 82-year-old with history of hypertension, hyperlipidemia, type 2 diabetes, colon cancer, status post colon resection, prior right nephrectomy, history of CVA with epilepsy, and left hemiparesis, who presents in consultation regarding urinary retention. The patient is a poor historian today. Uncertain what his baseline is, but it is slightly difficult for him to remain oriented regarding why he is here in the hospital today. The patient has an indwelling catheter in that is draining clear yellow urine, which has been in since the August 03. We will plan to leave this in until maybe tomorrow or Sunday to consider removal in the time for voiding trial. Reading admission note from hospitalist it sounds like his catheter was removed at most recent appointment and the patient had slightly elevated PVRs, most recently around 240. If the patient continues to have episodes of urinary retention could consider evaluation for bladder outlet obstruction versus possible suprapubic tube placement. The patient denies any voiding complaints prior to Sunday. We will continue him on Flomax at this time. We will keep indwelling catheter. We will continue to monitor. Please call with questions or concerns. cc: MD Osmar Majano MD MTDD
[2018-08-07] MEDS: FLOMAX PO SCH (20:27)
[2018-08-07] MEDS: LOVENOX SUBQ SCH (20:27)
[2018-08-07] MEDS: CITRACAL + D PO SCH (20:27)
[2018-08-08] MEDS: ALBUTEROL NEB INH SCH ×4 (03:12→21:05)
--- NOTE | 2018-08-08 07:07 | PROGRESS NOTE ---
DATE: 08/08/2018 SUBJECTIVE: No acute events overnight. The patient denies any pain this morning. The urethral catheter is draining well with clear yellow urine, 1600 recorded yesterday. The patient states he is tolerating a diet and overall feels well. OBJECTIVE: Vital signs: Temperature 97.4 degrees, heart rate 62, blood pressure 151/65, oxygen saturation 97% on 2 L nasal cannula. General: Resting comfortably in bed. Alert and oriented x2, person and place. Respiratory: Good respiratory effort without audible wheezing or rales. The patient has nasal cannula in place. Abdomen: Soft, nontender, nondistended. Genitourinary: Urethral catheter in place draining clear yellow urine. No suprapubic tenderness. No CVA tenderness. LABORATORY DATA: Urine culture with no growth from 08/06/2018. ASSESSMENT AND PLAN: Mr. Krishna is an 82-year-old with hypertension, hyperlipidemia, type 2 diabetes, history of colon cancer status post colon resection, prior nephrectomy, history of cerebrovascular accident with epilepsy and left hemiparesis, who presented in consultation regarding urinary retention. The patient was a little bit of a poor historian yesterday, but reading through the records, it appears that he had a catheter placed over the weekend for retention, was sent back to his facility and then re-presented with respiratory distress. Overall, he seems to be improving from a respiratory standpoint. Would plan to try to remove his catheter tomorrow and evaluate his postvoid residuals. If patient keeps postvoid residuals blood less than 300, would hold off on inserting catheter. If the patient continues to have issues with urinary retention, would have to either consider increase his dose of Flomax, or have indwelling catheter versus suprapubic tube. We will continue him on Flomax at this time. We will continue to monitor. Please call with questions or concerns. cc: MD Osmar Majano MD MTDD
[2018-08-08] MEDS: TRENTAL PO SCH ×2 (10:11→21:10)
[2018-08-08] MEDS: PHENOBARBITAL PO SCH ×4 (10:11→23:49)
[2018-08-08] MEDS: NEURONTIN PO SCH ×3 (10:11→18:51)
[2018-08-08] MEDS: ASPIRIN EC PO SCH (10:11)
[2018-08-08] MEDS: COZAAR PO SCH (10:11)
[2018-08-08] MEDS: PREDNISONE PO SCH (10:11)
[2018-08-08] MEDS: CALMOSEPTINE OINTMENT TOP SCH ×2 (10:12→21:06)
[2018-08-08] MEDS: LOVENOX SUBQ SCH (21:10)
[2018-08-08] MEDS: FLOMAX PO SCH (21:10)
[2018-08-08] MEDS: CITRACAL + D PO SCH (21:10)
[2018-08-09] MEDS: ALBUTEROL NEB INH SCH ×4 (03:32→20:23)
--- NOTE | 2018-08-09 08:00 | PROGRESS NOTE ---
DATE: 08/09/2018 SUBJECTIVE: No acute events yesterday. The patient's Barajas catheter was removed and the patient has voided several times. The patient has had multiple bladder scans ranging anywhere from 170- 380. Overnight, the patient did have a scan, which showed 380cc and underwent CIC. Otherwise, the patient has been voiding and seemingly emptying his bladder relatively adequately. Recorded over 1500 of urinary output yesterday. The patient denies any frequency, urgency, or pelvic pain. OBJECTIVE: Vital signs: Temperature 97.9, heart rate 62, blood pressure 148/63, oxygen saturation 100% on nasal cannula. General: No acute distress, resting comfortably in bed, alert and oriented x3. Respiratory: on nasal cannula, slight increase in breathing, but stable. Abdomen: Soft, nontender, nondistended. Multiple abdominal incisions. Genitourinary: No suprapubic tenderness, no CVA tenderness, normal phallus and bilateral testicles. ASSESSMENT AND PLAN: Mr. Krishna is an 82-year-old with hypertension, hyperlipidemia, type 2 diabetes, history of colon cancer status post colon resection, prior right nephrectomy, history of cerebrovascular accident with epilepsy and left hemiparesis, who presented in consultation regarding urinary retention. The patient had his catheter removed yesterday and has voided several times. Nurses have been diligent about doing bladder scans and seemingly he has only had 1 bladder scan that was over necessitating to have CIC. I think it is reasonable to maybe increase his dose of Flomax to 2 pills a day and the patient would like to try finasteride, all these were started today. Would continue with bladder scans possibly twice a day. If the patient's bladder scans remain less than 300cc postvoid, then it is reasonable to hold off on clean intermittent catheterization. The patient is not interested in undergoing suprapubic tube at this time, but is willing to discuss it if he continues to have issues with urination. Would like to do cystoscopy at some point in the future to evaluate for obstructing tissue, as if he has BPH, this may interfere with his ability to empty his bladder. Will continue to monitor. Please call with questions or concerns. cc: MD Osamr Majano MD MTDD
[2018-08-09] MEDS: NEURONTIN PO SCH ×3 (09:14→17:03)
[2018-08-09] MEDS: TRENTAL PO SCH ×2 (09:14→20:20)
[2018-08-09] MEDS: PHENOBARBITAL PO SCH ×4 (09:14→20:23)
[2018-08-09] MEDS: PREDNISONE PO SCH (09:15)
[2018-08-09] MEDS: CALMOSEPTINE OINTMENT TOP SCH ×2 (09:15→20:21)
[2018-08-09] MEDS: COZAAR PO SCH (09:15)
[2018-08-09] MEDS: ASPIRIN EC PO SCH (09:15)
[2018-08-09] MEDS: FLOMAX PO SCH ×2 (09:18→20:20)
[2018-08-09] MEDS: PROSCAR PO SCH (09:18)
--- NOTE | 2018-08-09 10:25 | Diag Imaging Result Doc PS360 ---
EXAM: CHEST-2 VIEWS 08/09/2018 HISTORY: pulmonary fibrosis TECHNIQUE: PA and lateral chest COMMENT: Compared to the previous study of 08/06/2018 the pulmonary vascularity is less prominent and there is less opacification of the lungs particularly the lower lobes and particularly the lateral left lower lobe. The inspiration remains suboptimal. The possibility of pulmonary fibrosis cannot be excluded. There has been no appreciable change compared to 02/15/2018. IMPRESSION: Pulmonary fibrosis. Apparent resolution of pulmonary edema and/or pneumonia present on the previous studies. Electronically signed by Jimenez Corcoran 08/09/2018 10:23 AM
[2018-08-09] MEDS: LOVENOX SUBQ SCH (20:19)
[2018-08-09] MEDS: CITRACAL + D PO SCH (20:20)
[2018-08-10] MEDS: ALBUTEROL NEB INH SCH ×3 (03:45→15:29)
[2018-08-10 07:36] LABS: AGAP 11; BUN 18 mg/dL (8-22); CALCIUM 9.2 mg/dL (8.8-10.2); CHLORIDE 96 mmol/L (98-107); COSMO 279; CREATININE 0.9 mg/dL (0.7-1.2); ESTIMATED GFR > 60; GLUCOSE 95 mg/dL (70-104); POTASSIUM 4.1 mmol/L (3.5-5.1); SODIUM 139 mmol/L (136-145); TCO2 32 mmol/L (25-35)
[2018-08-10 07:45] LABS: HEMOGLOBIN A1C 5.9 % (4.8-6.0)
[2018-08-10] MEDS: PHENOBARBITAL PO SCH ×3 (08:36→16:05)
[2018-08-10] MEDS: NEURONTIN PO SCH ×3 (08:37→16:05)
[2018-08-10] MEDS: PREDNISONE PO SCH (08:37)
[2018-08-10] MEDS: TRENTAL PO SCH (08:37)
[2018-08-10] MEDS: COZAAR PO SCH (08:37)
[2018-08-10] MEDS: PROSCAR PO SCH (08:37)
[2018-08-10] MEDS: ASPIRIN EC PO SCH (08:37)
[2018-08-10] MEDS: FLOMAX PO SCH (08:38)
[2018-08-10] MEDS: CALMOSEPTINE OINTMENT TOP SCH (10:00)
--- NOTE | 2018-08-10 12:25 | DISCHARGE SUMMARY ---
ADMISSION DATE: 08/06/2018 DISCHARGE DATE: 08/10/2018 FINAL DIAGNOSES: 1. Acute respiratory failure with hypoxia. 2. Chronic respiratory failure with hypoxia. 3. Pulmonary fibrosis. 4. Urinary retention. 5. History of chronic systolic congestive heart failure. 6. History of cerebrovascular disease with longstanding left hemiparesis. 7. Type 2 diabetes mellitus, diet controlled. 8. Essential hypertension. PRESENT ILLNESS: Mr. Krishna is an 82-year-old gentleman who lives at [facility]. Approximately a year ago he was diagnosed with pulmonary fibrosis which responded somewhat to oral steroids. He has a long history of COPD, hypertension, cerebrovascular disease, and longstanding left hemiparesis. Three days prior to this admission he was unable to void and in the Emergency Room a Barajas catheter was placed after a bladder scan was elevated. His urinalysis at that time was unremarkable without evidence of infection. On the day of admission at [place] he was noted to be hypoxemic with oxygen saturation in the 70s on 2 L of nasal cannula. His initial urinalysis was interpreted to show white cells but on further examination basically it had red blood cells with very few white cells. He was admitted for an acute flare of pulmonary fibrosis. Physical examination revealed increased crackles in both lung trevino approximately two-thirds the way up the posterior chest wall. No jugular venous distention was noted. Potassium was 5.1. ProBNP was 587 (nearly normal). HOSPITAL COURSE: He was admitted with the diagnosis of acute hypoxia due to an acute flare of his pulmonary fibrosis. He was given several doses of intravenous Solu-Medrol and then transitioned to oral prednisone. His oxygenation and his chest x-ray appearance improved markedly. At the time of discharge he has been on oral prednisone for 48 hours and has maintained his improvement. He was seen by Dr. Turcios, Urologist, for his urinary retention. His Barajas catheter was removed and he seemed to void reasonably well with a somewhat elevated postresidual volume of 180 to 240 mL. He was discharged via nonemergency transport back to [place]. His Flomax has been increased and Dr. Turcios added finasteride. He will follow up in my office in 8 to 14 days for a transition of care visit. DISCHARGE MEDICATIONS: Tamsulosin 0.4 mg twice a day, prednisone 20 mg every a.m., finasteride 5 mg daily, albuterol nebulizer treatments one-half strength (1.25 mg), and normal saline 4 times a day only as needed for shortness of breath, Trental 400 mg twice a day, aspirin 81 mg daily, pravastatin 40 mg nightly at bedtime, gabapentin 300 mg three times a day for neuropathy pain, Calmoseptine ointment topically b.i.d. as needed for groin rash, phenobarbital 16.2 mg two tablets three times a day, phenobarbital 64.8 mg p.o. nightly at bedtime, losartan 50 mg daily, vitamin D2 50,000 units once a week, Theragran-M tablet one daily, teriparatide 20 mcg subcutaneously daily, Citracal plus D one tablet at bedtime, and acetaminophen 500 mg every 6 hours p.r.n. for pain. cc: Osmar Vasquez MD
[2018-08-10 15:12] VITALS: BP 114/70
== END 2018-08-10 16:44 | disposition home health service (06) | DRG 196 ==
LOC: SUPCPDRO → ED 11:28 → 3N 14:50
PROVIDERS: ADMIT Internal Medicine; ATTEND Internal Medicine
CPT/HCPCS: 71010; 71020; 71045; 71046; 80048; 80053; 81001; 82550; 82805; 82948; 83036; 83605; 83880; 84484; 85025; 85379; 85610; 85730; 87040; 87088; 93005; 94640; 94761; 94799; 96374; 96375; 99285; A9270; J1650; J1940; J1956; J2920; J2930; J7506; J7512; S0138; XXXXX